=== PATIENT | male | born 1935 | race Caucasian/White ===

== ENCOUNTER → 2024-10-25 09:52 | Outpatient (REF) | payer MEDICARE, OTHER, SELFPAY | LOC: RST 09:52 | PROVIDERS: ATTENDING PHYSICIAN Family Medicine | DX: T17.908S Unspecified foreign body in respiratory tract, part unspecified causing other injury, sequela (principal); J69.0 Pneumonitis due to inhalation of food and vomit | CPT/HCPCS: 74230; 92611 ==

== ENCOUNTER → 2024-10-28 12:07 | Outpatient (REF) | payer MEDICARE, OTHER, SELFPAY ==
[2024-10-28 12:53] LABS: % Basophils 0.7 % (0-2); % Eosinophils 8.2 % (0-6); % Immature Granulocytes 0.3 % (0-0.5); % Lymphocytes 30.2 % (20.5-51.1); % Monocytes 7.4 % (1.7-9.3); % Neutrophils 53.2 % (42.2-75.2); Absolute Basophils 0.1 10^3/uL (0-0.2); Absolute Eosinophils 0.6 10^3/uL (0-0.7); Absolute Lymphocytes 2.1 10^3/uL (1.2-3.4); Absolute Monocytes 0.5 10^3/uL (0.1-0.6); Absolute Neutrophils 3.7 10^3/uL (1.4-6.5); Hematocrit 39.7 % (39.0-52.0); Hemoglobin 12.9 g/dL (13.0-18.0); Mean Corp Hgb Conc. 32.5 g/dL (33.0-37.0); Mean Corpuscular Hgb 29.1 pg (27.0-31.0); Mean Corpuscular Volume 89.6 fL (80.0-94.0); Mean Platelet Volume 10.8 fL (7.4-10.4); Nucleated Red Blood Cells % 0 % (-); Platelet Count 161 10^3/uL (130-400); Red Blood Cell Count 4.43 10^6/uL (4.70-6.10); Red Cell Dist. Width 15.6 % (11.5-14.5); White Blood Cell Count 6.9 10^3/uL (4.8-10.8)
[2024-10-28 13:01] LABS: PT 15.8 Sec (11.4-14.6)
[2024-10-28 14:38] LABS: Albumin 4.4 g/dl (3.5-5.0); Blood Urea Nitrogen 40 mg/dl (9-20); Calcium 10.3 mg/dl (8.4-10.2); Carbon Dioxide 27 mmol/L (22-30); Chloride 99 mmol/L (98-107); Glucose 82 mg/dl (70-99); Phosphorus 3.4 mg/dl (2.5-4.5); Potassium 5.2 mmol/L (3.5-5.1); Sodium 138 mmol/L (135-145); eGFR 48.34
== END ==
LOC: REG 12:07
PROVIDERS: ATTENDING PHYSICIAN Internal Medicine Cardiovascular Disease; FAMILY PHYSICIAN Family Medicine
DX: I10 Essential (primary) hypertension (principal); I25.10 Atherosclerotic heart disease of native coronary artery without angina pectoris; I65.29 Occlusion and stenosis of unspecified carotid artery; I25.119 Atherosclerotic heart disease of native coronary artery with unspecified angina pectoris
CPT/HCPCS: 36415; 80069; 85025; 85610; 85730

== ENCOUNTER → 2024-11-16 13:07 | Outpatient (REF) | payer MEDICARE, OTHER, SELFPAY | LOC: RCS 13:07 | PROVIDERS: ATTENDING PHYSICIAN Internal Medicine Cardiovascular Disease; FAMILY PHYSICIAN Family Medicine | DX: I10 Essential (primary) hypertension (principal); I25.10 Atherosclerotic heart disease of native coronary artery without angina pectoris; I48.91 Unspecified atrial fibrillation; I65.29 Occlusion and stenosis of unspecified carotid artery; I25.119 Atherosclerotic heart disease of native coronary artery with unspecified angina pectoris | CPT/HCPCS: 93306 ==

== ENCOUNTER → 2024-12-17 09:14 | Outpatient (REF) | payer MEDICARE, OTHER, SELFPAY ==
[2024-12-17 10:48] LABS: % Basophils 0.6 % (0-2); % Eosinophils 8.6 % (0-6); % Immature Granulocytes 0.1 % (0-0.5); % Lymphocytes 34.9 % (20.5-51.1); % Monocytes 6.9 % (1.7-9.3); % Neutrophils 48.9 % (42.2-75.2); Absolute Eosinophils 0.6 10^3/uL (0-0.7); Absolute Lymphocytes 2.4 10^3/uL (1.2-3.4); Absolute Monocytes 0.5 10^3/uL (0.1-0.6); Absolute Neutrophils 3.3 10^3/uL (1.4-6.5); Hematocrit 41.3 % (39.0-52.0); Hemoglobin 13.5 g/dL (13.0-18.0); Mean Corp Hgb Conc. 32.7 g/dL (33.0-37.0); Mean Corpuscular Hgb 28.8 pg (27.0-31.0); Mean Corpuscular Volume 88.2 fL (80.0-94.0); Mean Platelet Volume 10.5 fL (7.4-10.4); Nucleated Red Blood Cells % 0 % (-); Platelet Count 170 10^3/uL (130-400); Red Blood Cell Count 4.68 10^6/uL (4.70-6.10); Red Cell Dist. Width 15.4 % (11.5-14.5); White Blood Cell Count 6.8 10^3/uL (4.8-10.8)
[2024-12-17 11:58] LABS: ALT (SGPT) 15 U/L (0-50); Albumin 4.3 g/dl (3.5-5.0); Alkaline Phosphatase 129 U/L (38-126); Blood Urea Nitrogen 31 mg/dl (9-20); Calcium 10.2 mg/dl (8.4-10.2); Carbon Dioxide 27 mmol/L (22-30); Chloride 99 mmol/L (98-107); Glucose 101 mg/dl (70-99); HDL Cholesterol 38 mg/dl; LDL Cholesterol, Calculated 44 mg/dl; Potassium 4.5 mmol/L (3.5-5.1); Sodium 138 mmol/L (135-145); Total Bilirubin 1.2 mg/dl (0.2-1.3); Total Cholesterol 108 mg/dl (50-199); Total Protein 7.5 g/dl (6.3-8.2); Triglyceride 134 mg/dl (10-149); Very Low Density Lipoprotein 26 mg/dl (0-30); eGFR 58.17
[2024-12-17 12:09] LABS: AST (SGOT) 22 U/L (17-59)
[2024-12-17 12:11] LABS: Free T4 1.26 ng/dl (0.78-2.19)
[2024-12-17 12:15] LABS: Glycohemoglobin (HgbA1c) 5.6 % (4.0-5.6)
[2024-12-17 12:25] LABS: TSH 2.97 uIU/ml (0.47-4.68)
== END ==
LOC: REG 09:14
PROVIDERS: ATTENDING PHYSICIAN Family Medicine; REFERRING PHYSICIAN Internal Medicine Cardiovascular Disease
DX: R53.81 Other malaise (principal); E11.9 Type 2 diabetes mellitus without complications; I10 Essential (primary) hypertension; E78.2 Mixed hyperlipidemia; R39.15 Urgency of urination; I48.0 Paroxysmal atrial fibrillation
CPT/HCPCS: 36415; 80053; 80061; 83036; 84439; 84443; 85025

== ENCOUNTER → 2024-12-19 10:23 | Outpatient (REF) | payer MEDICARE, OTHER, SELFPAY ==
[2024-12-19 10:46] LABS: Urine Albumin 1+ (Neg - Trace); Urine Bilirubin Negative (Negative); Urine Character Clear (Clear); Urine Color Yellow; Urine Glucose Negative (Negative); Urine Ketone Negative (Negative); Urine Leukocyte Negative (Negative); Urine Nitrite Negative (Negative); Urine Occult Blood 1+ (Negative); Urine Urobilinogen Negative (Neg - 1+)
[2024-12-19 11:00] LABS: Urine Granular Cast 0-2 /LPF (0); Urine Hyaline Cast 0-2 /LPF (0-2); Urine Squamous Cell >30 /LPF (Few)
[2024-12-19 11:01] LABS: Urine Bacteria Few (Negative)
[2024-12-19 13:13] LABS: Microalbumin, Random Urine 4.7 mg/dl (0.6-1.7)
== END ==
LOC: REG 10:23
PROVIDERS: ATTENDING PHYSICIAN Family Medicine
DX: R53.81 Other malaise (principal); I10 Essential (primary) hypertension; E11.9 Type 2 diabetes mellitus without complications; E78.2 Mixed hyperlipidemia; R39.15 Urgency of urination; I48.0 Paroxysmal atrial fibrillation
CPT/HCPCS: 81003; 81015; 82043

== ENCOUNTER 2025-02-19 10:38 | Inpatient (IN) | payer MEDICARE, OTHER, SELFPAY ==
[2025-02-19] VITALS (28 sets, daily range): BP systolic 95–167; BP diastolic 57–127; BMI 23.6
--- NOTE | 2025-02-19 07:59 | ED.GENMED ---
History of Present Illness
General
Chief Complaint: Cold/Flu/URI Symptoms
Source: patient, records and previous hospital records
Exam Limitations: clinical condition
Time Seen by Provider: 02/19/25 07:38
Nursing documentation reviewed up to this point in time: agreed with
History of Present Illness
History of Present Illness:
89-year male from home with fever cough decreased p.o. intake, history of aspiration pneumonia here is febrile pulse ox is high 80s, states he has not been eating much because he aspirates, unclear if he has A-fib with anticoagulation,
Past History
Past History
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
of neck. He has a carotid blockage on that side and that's why he is on Plavix.)
ED Past Surgical History: Other (Mohs surgery)
Social History
Tobacco: Non-smoker
Alcohol: Occasional
Drug: None
Personal:
Living: with family
Employment: Retired
Family History
Family History: Other
Review of Systems
Review of Systems
All Other Systems: Not applicable
Constitutional: Reports fever and fatigue
Respiratory: Reports cough and trouble breathing
ABD/GI: Denies abdominal pain
Neurological: Reports weakness
Phy Exam
Physical Exam
Physical Exam:
Physical Exam
General: Ill-appearing male
Neck: Dry lips
Heart: Tachycardic
Lungs: Wheeze and rhonchi
Abdomen: Nontender
Neuro: Hard of hearing, grossly nonfocal
Skin: no rash
Psychiatric: Unable to fully assess appears
Extremities: no edema.
Sepsis
Sepsis Screening
Sepsis Assessment: Sepsis
Sepsis Screen
Sepsis Screen: Sepsis
Date: 02/19/25
Time: 12:13
Course
Orders/Labs/Results
Orders:
Orders
02/19/25 07:40
COVID-19 Antigen Urgent
Source: Nasal Swab
Urinalysis Reflex To Culture Urgent
Date Specimen was Collected: 02/19/25
Time Specimen was Collected: 07:36
Urine Microscopic Reflex Cult Urgent
Influenza A+B Rapid Molecular Urgent
JENNIFER Source: Nasal Swab
Specimen Description:
Date Specimen was Collected: 02/19/25
Time Specimen was Collected: 07:36
02/19/25 07:44
Complete Blood Count/With Diff Urgent
Comprehensive Metabolic Panel Urgent
Lactic Acid Urgent
Blood Culture Urgent
JENNIFER Source: Blood/Venous
Specimen Description:
02/19/25 07:49
CR Chest - 2 Views Urgent
Comment:
Reason For Exam: coguh fever
02/19/25 07:55
0.9% Sodium Chloride 1000 ml [Nss] 1,000 ml IV BOLUS
Acetaminophen 1000MG/100Ml [Ofirmev] 1,000 mg in 100 ml IV ONCE
Acetaminophen IV Indication:: ED Narcotic Naive Pt-ONCE
Ipratropium/Albuterol Sulfate [Duoneb] 3 ml INH R NOW STA
02/19/25 07:57
Electrocardiogram (*1) Urgent
Reason for Study: Shortness of Breath
EKG- Treatment ONCE
02/19/25 08:31
ABG [Arterial Blood Gas] Urgent
%Oxygen/Room Air: neb
02/19/25 08:56
Diltiazem HCl [Cardizem] 10 mg IV NOW STA
02/19/25 09:00
Diltiazem 125 mg/125 ml Nss [Cardizem] 125 mg in 125 ml IV PER PROTOCOL
Initial dose in mg/hr, then titrate:: 5
Titrate to keep:: Heart rate 80-100 bpm
Titrate by mg/hr:: 5 mg/hr
Frequency of titrations (minutes):: 15
Maximum dose in mg/hr:: 15
02/19/25 09:28
Ampicillin/Sulbactam 3 G [Unasyn] 3 gm 0.9% Sodium Chloride 100 ml [Nss] 100 ml IV NOW
02/19/25 09:31
Blood Culture Urgent
JENNIFER Source: Blood/Venous
Specimen Description:
02/19/25 09:59
Consult Interventional Radiology [IRAD CONSULT] Routine
Consulting Provider: Ramiro Huff
Was physician already notified: Yes
Reason for Consult/Procedure: Ptx
Acknowledgement that appropriate orders are entered: N/A
02/19/25 Lunch
NPO
Allow oral meds: Yes
Allow clear liquids: Sips of Clears
02/19/25 10:05
Lidocaine 2% [Xylocaine 2% Mdv] 20 ml .ROUTE .STK-MED ONE
02/19/25 10:18
Admit/Transfer Patient As Directed
Co-Sign Provider:
Level of Care: Inpatient admission
Assign to:: ICU
Physician / Group: Minoo
Diagnosis: Aspiration pneumonia, hydropneumothorax, rapid atrial fibrillation
Reason for Hospitalization: Antibiotics, chest tube, rate control
Expected length of stay greater than two midnights?: Yes
ELOS- Estimated Length of Stay in days: 4
I certify the patient meets the requirements for IP care: Yes
02/19/25 10:19
PRN Pain Medication Management As Directed
May give lesser potent ordered pain med per pt: Yes
preference::
Protocol:: Medication orders for pain may be administered in a
manner that supports deferring to patient preference
when the pt is:
- Requesting an ordered lesser potent pain medication.
Least to most potent pain medications are defined
as: acetaminophen < NSAID < tramadol < opioids
(morphine, oxycodone, hydromorphone).
- Requesting a lesser dose of the same medication IF
ORDERED.
- Requesting a less intrusive route of administration
if both routes are prescribed by the provider (PO <
IV).
02/19/25 10:20
Code Status As Directed
Resuscitation Status: Full Code
02/19/25 10:33
Fentanyl Citrate/Pf [Sublimaze] 100 mcg .ROUTE .STK-MED ONE
02/19/25 12:09
Dextrose 50%-Water [Dextrose 50% Syringe] 12.5 grams IV H20DSFN PRN
Glucagon [GlucaGen] 1 mg IM PRN PRN
Insulin Aspart Corrective Low [Novolog Flexpen-Low Resistance] See Protocol SC AC
Lactated Ringers [Lr] 1,000 ml IV 80 mls/hr
02/19/25 12:09
CARDIOLOGY CONSULT Routine
Consulting Provider: Johnson Rizo
Was physician already notified: Yes
Electrolysis Investigator Consult Routine
Consulting Provider: Douglas Null
Was physician already notified: Yes
Activity As Directed
Activity Level: Bedrest
Bedside Glucose Monitoring As Directed
Frequency: AC&HS
Additional Instructions:: Change to q6h if pt on TPN, tube feeding or not eating
Speech Therapy Eval & Treat Routine
02/19/25 14:00
Acetaminophen [Tylenol] 650 mg PO Q6HPRN PRN
02/19/25 16:00
Ampicillin/Sulbactam 3 G [Unasyn] 3 gm 0.9% Sodium Chloride 100 ml [Nss] 100 ml IV Q6H
02/19/25 20:00
Apixaban [Eliquis] 5 mg PO BID
02/20/25 06:00
Complete Blood Count/With Diff IN AM
Comprehensive Metabolic Panel IN AM
Glycohemoglobin (HgbA1c) IN AM
Abnormal Lab Results
02/19/25 02/19/25
07:40 07:44
WBC 12.2 H 10^3/uL
(4.8-10.8)
RBC 4.58 L 10^6/uL
(4.70-6.10)
RDW 15.4 H %
(11.5-14.5)
MPV 10.5 H fL
(7.4-10.4)
Absolute Neuts (auto) 9.7 H 10^3/uL
(1.4-6.5)
Absolute Monos (auto) 0.8 H 10^3/uL
(0.1-0.6)
Neutrophils % 80.0 H %
(42.2-75.2)
Lymphocytes % 12.3 L %
(20.5-51.1)
BUN 33 H mg/dl
(9-20)
Glucose 158 H mg/dl
(70-99)
Alkaline Phosphatase 134 H U/L
(38-126)
Ur Occult Blood Reflex 4+ A
(Negative)
Urine RBC 7-10 A /HPF
(0-2)
Urine Albumin (Reflex) 4+ A
(Neg - Trace)
02/19/25 07:44
02/19/25 07:44
Vital Signs
Initial and Last Documented VS:
Initial Vital Signs
Temp Pulse Resp BP Pulse Ox
100.6 F H 140 26 162/102 93
02/19/25 07:28 02/19/25 07:28 02/19/25 07:28 02/19/25 07:28 02/19/25 07:28
Last Documented Vital Signs
Temp Pulse Resp BP Pulse Ox
99.8 F 56 22 123/75 100
02/19/25 10:15 02/19/25 10:50 02/19/25 10:50 02/19/25 10:50 02/19/25 10:50
MDM/Problems Addressed
Differential Diagnosis Includes:
Pneumonia aspiration bronchitis
MDM/Problems Addressed:
Shortness of breath cough
Chronic conditions affecting care: Neurological disorder and Cancer
Acute Exacerbation and/or Progression of Chronic Illness: Neurological disorder and Cancer
*Radiology
Radiology exam reviewed: radiology read reviewed
*Pulse Oximetry
Patient hypoxic: yes
Comment: 89
*EKG
Interpreted by ED Provider?: Yes
Interpretation: abnormal
Comparison EKG: no comparison EKG present
Heart Rate: 140
Rate: normal
Ischemia: non-specific ST changes
*Gallery Assistant Interpretation
Rate: normal and tachycardiac
Interpretation: abnormal
Heart Rate: 140
Rhythm: sinus and a-fib
*Critical Care Note
Total Time (30-74mins, 75-104mins- exclusive of procedures): 31
Update Note
Update Note:
Update, summary text from radiology patient with a large pneumonia small pneumothorax conversation via text with hospitalist pulmonary and IR will start on rate control meds oxygen, plan for tube later today
ED Attending Note
-
Portions of this chart may have been created with voice recognition software.� Occasional wrong word or��sound alike� substitutions may have occurred due to the inherent limitations of voice recognition software.
Discharge Plan
Departure
Patient Disposition: Admit
Date of Disposition: 02/19/25
Time of Disposition: 09:10
Admit to: IMU
Presentation/result/management discussed w/ accepting MD/DO: Hospitalist
Patient with high blood pressure during this ER visit?: Yes
Condition: Serious
Discharge Problem:
Aspiration pneumonia, Pneumothorax
Interventions
Interventions:
*Risk Screen - Suicide Last Done: 02/19/25 07:28
*General Assessment Last Done: 02/19/25 07:28
*Neglect/Abuse Screening Last Done: 02/19/25 07:28
[2025-02-19 08:00] LABS: % Basophils 0.4 % (0-2); % Eosinophils 0.8 % (0-6); % Immature Granulocytes 0.2 % (0-0.5); % Lymphocytes 12.3 % (20.5-51.1); % Monocytes 6.3 % (1.7-9.3); Absolute Basophils 0.1 10^3/uL (0-0.2); Absolute Eosinophils 0.1 10^3/uL (0-0.7); Absolute Lymphocytes 1.5 10^3/uL (1.2-3.4); Absolute Monocytes 0.8 10^3/uL (0.1-0.6); Absolute Neutrophils 9.7 10^3/uL (1.4-6.5); Hematocrit 39.8 % (39.0-52.0); Hemoglobin 13.2 g/dL (13.0-18.0); Mean Corp Hgb Conc. 33.2 g/dL (33.0-37.0); Mean Corpuscular Hgb 28.8 pg (27.0-31.0); Mean Corpuscular Volume 86.9 fL (80.0-94.0); Mean Platelet Volume 10.5 fL (7.4-10.4); Nucleated Red Blood Cells % 0 % (-); Platelet Count 201 10^3/uL (130-400); Red Blood Cell Count 4.58 10^6/uL (4.70-6.10); Red Cell Dist. Width 15.4 % (11.5-14.5); White Blood Cell Count 12.2 10^3/uL (4.8-10.8)
[2025-02-19 08:07] LABS: COVID-19 Antigen Negative (Negative)
[2025-02-19 08:13] LABS: Urine Albumin 4+ (Neg - Trace); Urine Bilirubin Negative (Negative); Urine Character Clear (Clear); Urine Color Yellow; Urine Glucose Negative (Negative); Urine Ketone Negative (Negative); Urine Leukocyte Negative (Negative); Urine Nitrite Negative (Negative); Urine Occult Blood 4+ (Negative); Urine Specific Gravity 1.015 (<1.030); Urine Urobilinogen Negative (Neg - 1+)
[2025-02-19 08:18] LABS: ALT (SGPT) 14 U/L (0-50); AST (SGOT) 21 U/L (17-59); Albumin 4.3 g/dl (3.5-5.0); Alkaline Phosphatase 134 U/L (38-126); Blood Urea Nitrogen 33 mg/dl (9-20); Calcium 10.2 mg/dl (8.4-10.2); Carbon Dioxide 23 mmol/L (22-30); Chloride 103 mmol/L (98-107); Estimated Creatinine Clearance 44 ml/min; Glucose 158 mg/dl (70-99); Potassium 4.9 mmol/L (3.5-5.1); Sodium 140 mmol/L (135-145); Total Bilirubin 1.2 mg/dl (0.2-1.3); Total Protein 7.5 g/dl (6.3-8.2); eGFR 58.17
[2025-02-19] MEDS: OFIRMEV 100 IV (08:22)
[2025-02-19] MEDS: DUONEB 3 ML INH ×2 (08:23→19:51)
[2025-02-19] MEDS: NSS 1000 IV (08:27)
[2025-02-19 08:54] LABS: Urine Squamous Cell None seen /LPF (Few); Urine White Cell None Seen /HPF (0-5)
[2025-02-19] MEDS: CARDIZEM 125 IV (09:32)
[2025-02-19] MEDS: CARDIZEM 10 MG IV (09:32)
[2025-02-19] MEDS: UNASYN IV ×3 (09:48→21:40)
--- NOTE | 2025-02-19 10:26 | HPS.HSE ---
Family Physician
-
Family Physician: NOT KNOW UNKNOWN - PT DOES
Chief Complaint
-
Cough, shortness of breath, chills
History of Present Illness
89-year-old male with history of aspiration pneumonia, was in his usual state of health yesterday but in the middle of the night his noted significant cough and chills and became concerned.
Patient himself is a limited historian. His states that he is chronically ill, has limited mobility. Uses a walker to transfer. Primarily sits in the chair and has had significant weight loss and anorexia. Limited oral intake related to
dysphagia and history of aspiration.
History of head and neck cancer resected 30 years ago and treated with radiation. Never had a feeding tube according to .
Medical History
Past Medical History
Past Medical History: Reports Other
Additional Past Medical History:
Aspiration pneumonia
Tongue cancer
Atrial fibrillation -recent diagnosis.
Essential hypertension
Left carotid occlusion and stenosis
CAD
Hypothyroidism
DM2
Aortic stenosis
Spinal stenosis
Chronic anemia
PAD
Past Surgical History: Reports Other
Additional Past Surgical History:
Tongue resection
Adrenalectomy
Social History
Tobacco: Non-smoker
Alcohol: Occasional
Drug: None
Personal:
Living: With Family
Family History
Family History: Not pertinent
Allergies / Home Medications
Allergies reflects when Allergies were last updated in [facility].
Home Medications with original date entered in [facility]
Allergy/Medication List:
Allergies
Allergy/AdvReac Type Severity Reaction Status Date / Time
penicillin G Allergy DRY MOUTH Verified 02/19/25 07:36
Home Medications
aspirin 81 mg chewable tablet 81 mg PO DAILY Blood clot prevention/tx 08/07/22
atorvastatin 80 mg tablet (Lipitor) 80 mg PO HS High cholesterol 08/07/22
cholecalciferol (vitamin D3) 25 mcg (1,000 unit) capsule (Vitamin D3) 25 mcg PO DAILY@1200 Supplement 08/07/22
glimepiride 1 mg tablet 1 mg PO DAILY Diabetes 08/07/22
levothyroxine 50 mcg tablet 50 mcg PO DAILY Thyroid 08/07/22
metoprolol succinate 25 mg tablet,extended release 24 hr 25 mg PO DAILY Blood pressure 08/07/22
pregabalin 75 mg capsule (Lyrica) 75 mg PO BID Pain 08/07/22
vitamin E 400 unit tablet 400 unit PO DAILY@1200 Supplement 08/07/22
chlorhexidine gluconate 0.12 % mouthwash 10 ml mucous membrane BID Infection 08/13/22
fluoride (sodium) 1.1 % dental cream (Denta 5000 Plus) 1 applic dental BID Prevent cavitites 08/13/22
furosemide 20 mg tablet 20 mg PO MOWEFR Fluid retention/Swelling 08/13/22
pentoxifylline 400 mg tablet,extended release 400 mg PO BID Blood Clot Prevention/Tx 08/13/22
temazepam 15 mg capsule 15 mg PO HS insomnia 08/13/22
vitamin A-vitamin C-vit E-min tablet (Vision tablet) 1 tab PO BID@1200,2200 Supplement 08/13/22
doxycycline monohydrate 40 mg capsule,immediate - delay release (Oracea) 40 mg PO DAILY Infection 04/06/23
losartan 100 mg tablet 100 mg PO DAILY Blood Pressure 04/06/23
omega 6-hwn-nst-fish oil 1,000 mg (120 mg-180 mg) capsule (Fish Oil) 1 cap PO DAILY Supplement 04/06/23
amoxicillin 875 mg-potassium clavulanate 125 mg tablet 1 tab PO Q12H 7 days #14 tabs 04/09/23
Review of Systems
-
History Source: Patient and Family
A 12 point ROS was completed and negative except as noted: Yes
Constitutional: Reports Chills
Respiratory: Reports Cough
Physical Exam
Vital Signs
Vital Signs
Temp Pulse Resp BP Pulse Ox
99.8 F 95 22 111/61 100
02/19/25 10:15 02/19/25 10:15 02/19/25 10:15 02/19/25 10:15 02/19/25 10:15
Physical Exam
General: No Apparent Distress, Comfortable and Appears Chronically Ill
HEENT: NormoCephalic and Anicteric
Respiratory: Rhonchi
Cardiac: S1/S2, Regular Rhythm and Tachycardia
GI: Soft, Non Tender and Non Distended
Genito-urinary: Deferred by me
Musculoskeletal: No Clubbing, No Cyanosis and No Edema
Skin: Warm and Dry
Neuro: Awake and Alert
Hematologic/Lymphatic: No Lymphadenopathy
Psych: Calm
Laboratory Results
-
02/19/25 07:44
02/19/25 07:44
Laboratory Results
Lactic Acid 2.0 mmol/L (0.7-2.0) 02/19/25 07:44
Total Bilirubin 1.2 mg/dl (0.2-1.3) 02/19/25 07:44
AST 21 U/L (17-59) 02/19/25 07:44
ALT 14 U/L (0-50) 02/19/25 07:44
Alkaline Phosphatase 134 U/L (38-126) H 02/19/25 07:44
Impression/Plan
-
Sepsis -due to aspiration pneumonia. Admit to ICU. Continue IV fluids and antibiotics. Blood culture sent. Consult product manager medical device.
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 Chest x-ray with bilateral infiltrates. Has been on a soft diet at home. Last episode of aspiration pneumonia was 2 years ago according to his . Keep
n.p.o., await speech therapy consult. states that patient would not be interested in a feeding tube. Will need to address goals of care.
Right hydropneumothorax -with small right apical pneumothorax on chest x-ray. Moderate right pleural effusion. Awaiting chest tube today by IR.
Rapid atrial fibrillation -started on IV Cardizem in the emergency room with improvement in heart rate. Suspect trigger of rapid atrial fibrillation is sepsis and pneumonia. Should improve with treatment of underlying condition.
Known to Dr. Pierre. Has been on Eliquis. Consult cardiology.
Essential hypertension with hypertensive urgency -blood pressure elevated on arrival due to hypoxia and sepsis. Blood pressure now improving on IV Cardizem.
CAD -stable.
Hypothyroidism -on levothyroxine.
DM2 with hyperglycemia -hold oral agents. Use low resistance NovoLog scale.
Full code - prefers DNR but she states that her would want to be a full code. Will need to address goals of care.
--- NOTE | 2025-02-19 11:36 | CON.CAR ---
Consultation
Consultation Request
Date/Time Consultation Requested: 02/19/2025 at 10:18 AM
Date/Time Consultation Performed: 02/19/25 at 11:30 AM
Requesting Provider: Kareem Hennessy MD
Performing Provider: Johnson Rizo MD
Reason for Consultation: AF w RVR
Medical History
-
Chief Complaint: AF w RVR
History of Present Illness:
Venu Briscoe is an 89-year-old man with coronary artery disease (abnormal stress test), hypertension, atrial fibrillation on Eliquis who presents with aspiration pneumonia. He is a patient of Dr. Pierre whom he last saw in October 2024. At
that time he was diagnosed with new asymptomatic rate controlled atrial fibrillation and started on Eliquis 5 mg twice daily. He presents today after coughing episode with high fevers last night, found to have aspiration pneumonia and right
hydropneumothorax status post chest tube placement. Cardiology was consulted because his initial heart rates were in the 130s�140s. He was briefly on IV Cardizem which has since been stopped. After chest tube placement and Cardizem, his heart
rate is now in the 70s�80s. He has no CV complaints.
Past Medical History
Past Medical History: Other (as above)
Family History
Family History: Reviewed & Not Pertinent
Allergies / Home Medications
Allergy/AdvReac Type Severity Reaction Status Date / Time
penicillin G Allergy DRY MOUTH Verified 02/19/25 07:36
�Medication �Instructions �Recorded �Confirmed �Type
aspirin 81 mg chewable tablet 81 mg PO DAILY Blood clot 08/07/22 04/06/23 History
prevention/tx
atorvastatin 80 mg tablet (Lipitor) 80 mg PO HS High cholesterol 08/07/22 04/06/23 History
cholecalciferol (vitamin D3) 25 25 mcg PO DAILY@1200 Supplement 08/07/22 04/06/23 History
mcg (1,000 unit) capsule (Vitamin
D3)
glimepiride 1 mg tablet 1 mg PO DAILY Diabetes 08/07/22 04/06/23 History
levothyroxine 50 mcg tablet 50 mcg PO DAILY Thyroid 08/07/22 04/06/23 History
metoprolol succinate 25 mg 25 mg PO DAILY Blood pressure 08/07/22 04/06/23 History
tablet,extended release 24 hr
pregabalin 75 mg capsule (Lyrica) 75 mg PO BID Pain 08/07/22 04/06/23 History
vitamin E 400 unit tablet 400 unit PO DAILY@1200 Supplement 08/07/22 04/06/23 History
chlorhexidine gluconate 0.12 % 10 ml mucous membrane BID Infection 08/13/22 04/06/23 History
mouthwash
fluoride (sodium) 1.1 % dental 1 applic dental BID Prevent 08/13/22 04/06/23 History
cream (Denta 5000 Plus) cavitites
furosemide 20 mg tablet 20 mg PO MOWEFR Fluid 08/13/22 04/06/23 History
retention/Swelling
pentoxifylline 400 mg 400 mg PO BID Blood Clot 08/13/22 04/06/23 History
tablet,extended release Prevention/Tx
temazepam 15 mg capsule 15 mg PO HS insomnia 08/13/22 04/06/23 History
vitamin A-vitamin C-vit E-min 1 tab PO BID@1200,2200 Supplement 08/13/22 04/06/23 History
tablet (Vision tablet)
doxycycline monohydrate 40 mg 40 mg PO DAILY Infection 04/06/23 04/06/23 History
capsule,immediate - delay release
(Oracea)
losartan 100 mg tablet 100 mg PO DAILY Blood Pressure 04/06/23 04/06/23 History
omega 5-tud-gos-fish oil 1,000 mg 1 cap PO DAILY Supplement 04/06/23 04/06/23 History
(120 mg-180 mg) capsule (Fish Oil)
amoxicillin 875 mg-potassium 1 tab PO Q12H 7 days #14 tabs 04/09/23 Rx
clavulanate 125 mg tablet
Review of Systems
-
All other systems: Negative unless noted
Physical Exam
Vital Signs
Temp Pulse Resp BP Pulse Ox
99.8 F 56 22 123/75 100
02/19/25 10:15 02/19/25 10:50 02/19/25 10:50 02/19/25 10:50 02/19/25 10:50
Lab Results
02/19/25 07:44
02/19/25 07:44
Physical Exam
General: No Apparent Distress
Respiratory: Clear
Cardiac: Irregular Rhythm; Negative Peripheral Edema
Impression / Plan
-
Venu Briscoe is an 89-year-old man with coronary artery disease (abnormal stress test), HFpEF, hypertension, atrial fibrillation on Eliquis who presents with aspiration pneumonia. Cardiology is consulted for atrial fibrillation with RVR which
has since resolved.
Rn Peritoneal Dialysis: Dr. Pierre
Persistent atrial fibrillation
-HRs initially 130s�140s but after chest tube placement and IV Cardizem, he is now in the 70s�80s, still in fib. Suspect initially elevated rates were due to dyspnea and pneumonia.
-Continue home metoprolol 25 mg daily. Uptitrate if needed.
-Continue Eliquis 5 mg twice daily. [id number] 4. If he is not able to take pills, he does NOT need bridging with heparin.
-Recent TTE in November. Do not need to repeat.
Aspiration pneumonia
-Antibiotics per primary team
-Status post chest tube for right sided hydropneumothorax
Coronary artery disease
-Based on abnormal stress test. Currently asymptomatic.
-Continue statin. No aspirin due to systemic anticoagulation.
Hypertension
-Hypertensive urgency on admission but suspect due to pain and dyspnea. Improved after chest tube
-BP is now well-controlled. Monitor on home metoprolol.
Cardiology will sign off at this time. Please call with any additional questions or concerns.
Data Reviewed
-
EKG: Tracing Personally Visualized and interpreted and Discussed with Patient
Radiology: Image Personally Visualized and interpreted
Medical Tests (Nuc Med, Echo etc): Report Reviewed by me
Labs: Labs Reviewed by me
Old Records: Reviewed
[2025-02-19] MEDS: LR 1000 IV (12:29)
--- NOTE | 2025-02-19 12:40 | CON.INTV ---
Consultation
Consultation Request
Date/Time Consultation Requested: 02/19/2025 - 120
Date/Time Consultation Performed: 02/19/2025 - 3
Requesting Provider: Dr. Hennessy
Performing Provider: Dr. Null
Reason for Consultation: R-sided PTX/pleural effusion
Medical History
-
Chief Complaint: Fever, chills and cough
History of Present Illness:
89-year-old male non-smoker with a past medical history of DM type II, hypertension, hyperlipidemia, tongue cancer s/p XRT, A-fib on Eliquis, aortic stenosis, RBBB and left carotid artery stenosis who presents with fevers, chills cough. He says his
cough started about a day ago without chest pain and he denies any coughing after eating or drinking. EMS said that his stated 'I can't deal with him, just take him.' states that he had a fever on the morning of arrival to 101.5 �F and
no meds were given to him. He reportedly has a history of aspiration pneumonia. Per the , he is chronically ill with limited mobility, using a walker to transfer. He has had significant weight loss recently and reduced oral intake due to
history of dysphagia/aspiration. He has a history of head neck cancer resected about 30 years ago, treated with radiation. Never had a feeding tube. Initially in the ER he was febrile to 100.6 �F, pulse rate 140 (A-fib with RVR), tachypneic to 26
breaths/min, BP 162/102 and saturating 93% on room air. Initial labs showed leukocytosis to 12.2, Hb 13.2, INR 2.49, urinalysis negative for UTI, and COVID-19 antigen negative. Flu A/B swab was negative and blood cultures collected. CXR showed a
right-sided hydropneumothorax with moderate right-sided pleural effusion and bilateral pulmonary opacities concerning for pneumonia. Given his rapid A-fib is initially given Cardizem 10 mg and then started on Cardizem drip, given DuoNebs, Tylenol,
Unasyn and 1 L NS 0.9%. IR was consulted and they inserted a 14 [place] Thal-Quick chest tube into the right hemithorax with removal of clear serous fluid. Given the patient's rapid A-fib with blood pressure dropping from the 160s to the 100s, he
was admitted to the ICU for closer monitoring and [facility] services consulted for additional management/recommendations.
When I saw the patient, he was resting in bed, right-sided chest tube in place with 2.1 L in the Pleur-evac, with serous appearing pleural fluid. Heart rate 87, BP 123/75 and saturating 100% on 6 L/min nasal cannula. He says he feels much better.
He still has a wet sounding cough. Of note, he is hard of hearing. He currently denies chest pain, ELIZONDO, nausea or chills.
PMHx: DM type II, hypertension, hyperlipidemia, rosacea, history of tongue cancer s/p XRT, macular degeneration, A-fib on Eliquis, left carotid artery stenosis, aortic stenosis, history of RBBB, [place]
PSHx: Tongue surgery, tumor removal from neck
Past Medical History
Past Medical History: Other (Above as per HPI)
Past Surgical History: Other (Above as per HPI)
Social History
Tobacco: Non-smoker
Alcohol: Daily
Drug: None
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
Family History
Family History: CAD (Father) and Hypertension (Mother + father)
Allergies / Home Medications
Allergies
Allergy/AdvReac Type Severity Reaction Status Date / Time
penicillin G Allergy DRY MOUTH Verified 02/19/25 07:36
Home Medications
�Medication �Instructions �Recorded �Confirmed �Last Taken �Type
atorvastatin 80 mg tablet (Lipitor) 80 mg PO HS High cholesterol 08/07/22 02/19/25 02/18/25 History
levothyroxine 50 mcg tablet 50 mcg PO DAILY Thyroid 08/07/22 02/19/25 02/18/25 History
pregabalin 75 mg capsule (Lyrica) 75 mg PO BID Pain 08/07/22 02/19/25 02/18/25 History
omega 9-ajm-zqj-fish oil 1,000 mg 1 cap PO DAILY Supplement 04/06/23 02/19/25 02/18/25 History
(120 mg-180 mg) capsule (Fish Oil)
apixaban 5 mg tablet (Eliquis) 5 mg PO BID 02/19/25 02/19/25 02/18/25 History
docusate sodium 100 mg capsule 200 mg PO BID 02/19/25 02/19/25 02/18/25 History
fluoride (sodium) 1.1 % dental 1 applic dental DAILY 02/19/25 02/19/25 02/18/25 History
cream (Denta 5000 Plus)
furosemide 20 mg tablet 20 mg PO .MOWEFR 02/19/25 02/19/25 02/17/25 History
glimepiride 1 mg tablet 1 mg PO DAILY 02/19/25 02/19/25 02/18/25 History
hydrocodone 7.5 mg-acetaminophen 1 tab PO Q6HPRN PRN moderate pain 02/19/25 02/19/25 02/17/25 History
325 mg tablet
metoprolol succinate 25 mg 25 mg PO DAILY 02/19/25 02/19/25 02/18/25 History
tablet,extended release 24 hr
omeprazole 40 mg capsule,delayed 40 mg PO DAILY 02/19/25 02/19/25 02/18/25 History
release
pentoxifylline 400 mg 400 mg PO BID 02/19/25 02/19/25 02/18/25 History
tablet,extended release
temazepam 15 mg capsule 15 mg PO HS PRN insomnia 02/19/25 02/19/25 02/18/25 History
vitamins A,C,X-dxtl-lblhre 2,148 2 tab PO BID 02/19/25 02/19/25 02/18/25 History
mcg-113 mg-45 mg-17.4 mg tablet
(PreserVision AREDS)
Review of Systems
-
History Source: Patient
All other systems: Negative unless noted
Vitals / Labs / Diagnostic Testing
Vital Signs
Temp Pulse Resp BP Pulse Ox
98.8 F 81 9 106/61 100
02/19/25 15:00 02/19/25 12:00 02/19/25 11:45 02/19/25 12:00 02/19/25 12:00
Lab Data
02/19/25 07:44
02/19/25 07:44
Laboratory Results
02/19/25 02/19/25 02/19/25
08:31 12:35 15:30
PT Cancelled 26.9 H
INR Cancelled 2.49
APTT Cancelled 42.8 H
pH Cancelled
pCO2 Cancelled
pO2 Cancelled
HCO3 Cancelled
O2 Delivery Level Cancelled
Microbiology
02/19/25 11:27 Pleural Fluid Gram Stain - Preliminary
02/19/25 07:40 Nasal Swab Influenza Types A & B (AUBREY) - Final
Negative for Influenza A & B, NAAT
Negative results must be combined with clinical observations
and patient history.
Nucleic Acid Amplification test (NAAT)performed on the
[employer] platform.
Diagnostic Testing:
Physical Exam
-
HEENT: Normocephalic and Anicteric
Cardiovascular: Irregular Rhythm (Irregularly irregular), Peripheral Edema (negative) and Other (Normal rate)
Respiratory: Rales (Bilaterally), Rhonchi (Bilaterally) and Other (Right-sided chest tube in place at -20 cmH2O suction with no airleak and 2.1 L of serous fluid in Pleur-evac)
GI: Soft, Non Distended, Non Tender and Normal Bowel Sounds
Neurology: Awake, Tremors (negative) and Other (Drowsy but answering questions appropriately)
Skin: Warm and Dry
General: Respiratory Distress (negative), Comfortable, Chills (negative) and Sweats (negative)
Assessment
-
Assessment: 89-year-old male non-smoker with a past medical history of DM type II, hypertension, hyperlipidemia, tongue cancer s/p XRT, A-fib on Eliquis, aortic stenosis, RBBB and left carotid artery stenosis who presents with fevers, chills cough.
He says his cough started about a day ago without chest pain and he denies any coughing after eating or drinking. EMS said that his stated 'I can't deal with him, just take him.' states that he had a fever on the morning of arrival to
101.5 �F and no meds were given to him. He reportedly has a history of aspiration pneumonia. Per the , he is chronically ill with limited mobility, using a walker to transfer. He has had significant weight loss recently and reduced oral
intake due to history of dysphagia/aspiration. He has a history of head neck cancer resected about 30 years ago, treated with radiation. Never had a feeding tube. Initially in the ER he was febrile to 100.6 �F, pulse rate 140 (A-fib with RVR),
tachypneic to 26 breaths/min, BP 162/102 and saturating 93% on room air. Initial labs showed leukocytosis to 12.2, Hb 13.2, INR 2.49, urinalysis negative for UTI, and COVID-19 antigen negative. Flu A/B swab was negative and blood cultures
collected. CXR showed a right-sided hydropneumothorax with moderate right-sided pleural effusion and bilateral pulmonary opacities concerning for pneumonia. Given his rapid A-fib is initially given Cardizem 10 mg and then started on Cardizem drip,
given DuoNebs, Tylenol, Unasyn and 1 L NS 0.9%. IR was consulted and they inserted a 14 [place] Thal-Quick chest tube into the right hemithorax with removal of clear serous fluid. Given the patient's rapid A-fib with blood pressure dropping from
the 160s to the 100s, he was admitted to the ICU for closer monitoring and [facility] services consulted for additional management/recommendations
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
aspiration, [place]
Impression:
#Right-sided hydropneumothorax s/p chest tube
#Bilateral pneumonia suspected to be due to aspiration
#Sepsis in the setting of pneumonia
#Acute respiratory failure with hypoxia due to pneumonia, pleural effusion + PTX
#A-fib with RVR
#Leukocytosis
#Elevated INR � likely due to reduced PO intake in the setting of sepsis and outpatient Eliquis use
#History of tongue cancer s/p resection + XRT
#History of dysphagia + aspiration
#History of A-fib on Eliquis (follows with Dr. Pierre as an outpatient)
#Left-sided carotid artery stenosis
#Low gradient moderate aortic stenosis seen on TTE from 11/16/2024
#History of alcohol use
Plan:
- Patient found to have bilateral pneumonia with a R-sided pneumothorax and large R-sided pleural effusion - once chest tube was inserted there was a large amount of pleural fluid removed, about 2.1 L of serous fluid
- Suspect that this also represents large component of heart failure
- Given that he is septic, would cautiously give IVF but monitor for development of pulmonary edema; check CXR again tomorrow; of note, he does take Lasix at home with 20 mg TIW
- Trend WBC and monitor fever curve
- Follow-up pleural fluid cultures
- Consider repeating echo as last done on 11/16/2024 showing low-gradient moderate aortic stenosis with peak/mean gradients of 12/7 mmHg with ERMA 1.1 cm�
- Continue antibiotics (Unasyn) with infectious workup including blood cultures; check sputum culture and check Legionella/strep pneumoniae urine antigens
- Patient has a history of A-fib and is on Eliquis at home with metoprolol
- Would continue with Eliquis as long as he can safely swallow otherwise may need Dobbhoff tube while SUPERVISOR PATCHING evaluation is pending
- Maintain goal HR <110
- Replete electrolytes with K>4, Mg>2
- Maintain SpO2 >90-94% with supplemental oxygen and wean down O2 flow rate as tolerated
- Aspiration precautions
- He has a wet sounding cough but not bringing up his phlegm
- Mucolytics with Mucinex
- Start DuoNebs with nebulized 3%-NS BID
- May benefit from vest; will use Acapella for now
- prn nebulized bronchodilators - not currently bronchospastic
- Maintain MAP>65
- Maintain euglycemia with goal BG 140-180; ISS for now; HbA1C: 5.6 on 12/17/2024
- Trend H/H and transfuse if needed to keep Hb>7g/dL; keep plt>20k, unless there is concern for bleeding then keep plt>50k
- Incentive spirometer encouraged 10x per hour for at least 4 hrs a day
- PT/OT
- DVT ppx: Eliquis; if unable to swallow then can do heparin gtt or therapeutic LMWH
Total time spent today was 79 minutes for this encounter. Time includes reviewing laboratory test/imaging results, reviewing pertinent medical records, obtaining and reviewing medical history, performing an appropriate exam, ordering medications,
tests and procedures. Time also includes documentation of this encounter, coordinating patient care and communicating with other healthcare professionals. Total time does not include separately billed tests performed on this date of service.
Data:
CXR 02/19/2025: Right hydropneumothorax; Bilateral pulmonary opacities suspicious for pneumonia. Pulmonary edema would be an alternative consideration.
[2025-02-19 12:51] LABS: Glucose - Point of Care 113 mg/dl (70-99)
--- NOTE | 2025-02-19 14:30 | PTCARENOTE ---
> At 12: 15 patient admitted from ED due to Aspiration pneumonia, hydropneumothorax; Dentures; Hearing aid
> AAO x3 Denies pain; Able to move b/l LE and UE with no difficulties. Speech chronic garble
> Afib 86 +2 pitting edema to b/l le
> chest tube Rt site inserted in ED on admission. Arrived on a floor with chest tube clamped. chest tube 1200 yellow drainage output
> Abdomen soft non tender round
> Continent of urine
--- NOTE | 2025-02-19 15:38 | PTOTSP ---
Speech Pathology Evaluation
89M with admission for aspiration PNA and rt hydropneumothorax s/p chest tube p/w s/s concerning of an acute on chronic oropharyngeal dysphagia. Overt s/s of aspiration with x1 ice chip this date. Patient declined further trials d/t discomfort.
Extensive dysphagia hx per chart with recent VSE on 10/25/24.
VSE 10/25/24:
'Moderate oral and severe pharyngeal dysphagia, worsened compared to last known video swallow study 10/09/2022. Dysphagia suspected to be chronic due to changes from tongue cancer s/p neck dissection and radiation combined with advanced age.
Aspiration risk is elevated. Patient denied any recent complications from aspiration such as PNA but endorsed weight loss (unspecified amount or time range) from dysphagia.
Patient indicated that he would not want non-oral means and wished to continue to eat/drink understanding risks/complications of aspiration after education about video swallow study this date. Further goals of care discussion with physician
warranted regarding risks/benefits of oral intake for comfort/pleasure vs consideration of non-oral means, given chronic dysphagia and elevated aspiration risk. If opting for PO for comfort consider diet below with thin liquids as thick liquids are
at an increased risk to cause pulmonary issues if aspirated.
If opting for PO diet for comfort/pleasure understanding aspiration risks:
1. IDDSI Level 5 Minced and Moist Solids, Thin Liquids via small single sips
2. Strategies: upright to 90 degrees, small sips/bites, multiple swallows (to
try and clear pharyngeal residue), cough/reswallow strategy (to try and clear
airway)
3. Oral care 3x daily
4. Outpatient dysphagia evaluation for patient education, instruction in compensations, and to target expiratory muscle strength training as an airway protection mechanism
5. Dietitian consult given reported weight loss'
Recommendations:
1. Strict NPO
2. Meds via non-oral means
3. Oral care 3-5x day
4. Not appropriate for ARHP
4. STEWARD/STEWARDESS WINE service to follow up re: to assess for safest and least restrictive diet level and determine need for repeat VSE
[2025-02-19 15:54] LABS: INR 2.49; PT 26.9 Sec (11.4-14.6)
[2025-02-19 15:55] LABS: APTT 42.8 Sec (23.4-35.0)
--- NOTE | 2025-02-19 16:25 | PTCARENOTE ---
per ST evaluation pt should remain strict NPO including meds. Patient refusing Dophoff . patient AAO x3
[2025-02-19 16:40] LABS: Glucose - Point of Care 109 mg/dl (70-99)
[2025-02-19] MEDS: LOVENOX 80 MG SC (17:06)
[2025-02-19] MEDS: NOVOLOG FLEXPEN-LOW RESISTANCE SC (19:11)
--- NOTE | 2025-02-19 19:15 | PTCARENOTE ---
Addendum entered by Paula tMz RN 02/20/25 01:12:
Room temperature warmed and warm blankets donned.
Original Note:
Patient received lying in bed. He appears to be sleeping comfortably with eyes closed, lying still, respirations nonlabored. Voice quality moist and garbled speech from previous tongue resection. Oriented to self, time, place and event. However, he
is noted forgetful. Patient states that he feels cold, afebrile. All extremities cool and mottled. Positive pulses x 4 extremities, bilateral pedal edema 1+. BLE dry with scaly areas on skin. S1S2 irregular with positive murmur. Afib with BBB on CM,
occasional PVCs. Sats 94% on RA. RUL with pleural rub and crackles, RML and RLL diminished. SMITH clear, left base diminished with fine crackles. CT right side with dressing CDI. No crepitus. No air leak noted, CT to -20cm suction with mostly serous
but some serosanguinous drainage noted. Patient c/o right chest discomfort at CT site 03/11. Prn Tylenol per rectum given. Bed in low and locked position, call brower within reach.
[2025-02-19] MEDS: TYLENOL/FEVERALL 650 MG RECTAL (19:23)
[2025-02-19] MEDS: SODIUM CHLORIDE 3% FOR INHALATION 1 VIAL INH (19:51)
--- NOTE | 2025-02-19 22:00 | PTCARENOTE ---
Patient voids per urinal, spilling some urine. Complete cares given with CHG cloth bath, complete linen change. Patient repositioned every 2 hours and prn. Oral care rendered, partial removed and soaked. Patient noted with sats dropping to 87%-92%
on RA with sleep. Loose NPC, encouraged DB & C. Ilya GONGORA notified and orders received to place patient on oxygen. O2 at 2L/nc placed. Sats improved to 97%.
[2025-02-20] VITALS (25 sets, daily range): BP systolic 95–175; BP diastolic 60–98; BMI 25.1
--- NOTE | 2025-02-20 | PTCARENOTE ---
Patient appears to be sleeping comfortably when undisturbed with eyes closed, lying still, respirations slightly tachypneic but non labored on 2L/nc oxygen. VSS. Changed out pleurex cannister due to chamber fullness. CT site remains WDL. Rouses
easily to name called. Physical assessment essentially unchanged except skin color less mottled and patient extremities are warmer.
[2025-02-20] MEDS: LR 1000 IV (00:09)
[2025-02-20] MEDS: NOVOLOG FLEXPEN-LOW RESISTANCE SC ×4 (00:09→17:41)
[2025-02-20 00:10] LABS: Glucose - Point of Care 94 mg/dl (70-99)
[2025-02-20] MEDS: UNASYN IV ×4 (04:18→22:47)
[2025-02-20] MEDS: LOVENOX 80 MG SC ×2 (05:30→17:40)
--- NOTE | 2025-02-20 05:30 | PTCARENOTE ---
Am labs drawn. CXR performed. Patient states he has no SOB, no CP. No change in BBS except RUL without rub audible, diminished t/o right lung. SMITH clear with fine crackles and diminished left base. No other change noted in physical assessment.
Afebrile, VSS.
[2025-02-20 05:57] LABS: % Basophils 0.2 % (0-2); % Immature Granulocytes 0.2 % (0-0.5); % Lymphocytes 20.1 % (20.5-51.1); % Monocytes 7.8 % (1.7-9.3); % Neutrophils 70.7 % (42.2-75.2); Absolute Eosinophils 0.1 10^3/uL (0-0.7); Absolute Lymphocytes 1.6 10^3/uL (1.2-3.4); Absolute Monocytes 0.6 10^3/uL (0.1-0.6); Absolute Neutrophils 5.7 10^3/uL (1.4-6.5); Hematocrit 34.7 % (39.0-52.0); Hemoglobin 11.5 g/dL (13.0-18.0); Mean Corp Hgb Conc. 33.1 g/dL (33.0-37.0); Mean Corpuscular Hgb 28.8 pg (27.0-31.0); Mean Platelet Volume 10.7 fL (7.4-10.4); Nucleated Red Blood Cells % 0 % (-); Platelet Count 146 10^3/uL (130-400); Red Blood Cell Count 3.99 10^6/uL (4.70-6.10); Red Cell Dist. Width 15.5 % (11.5-14.5); White Blood Cell Count 8.1 10^3/uL (4.8-10.8)
[2025-02-20 06:11] LABS: ALT (SGPT) 10 U/L (0-50); AST (SGOT) 19 U/L (17-59); Albumin 2.9 g/dl (3.5-5.0); Alkaline Phosphatase 93 U/L (38-126); Blood Urea Nitrogen 33 mg/dl (9-20); Calcium 9.3 mg/dl (8.4-10.2); Carbon Dioxide 26 mmol/L (22-30); Chloride 107 mmol/L (98-107); Estimated Creatinine Clearance 48 ml/min; Glucose 101 mg/dl (70-99); Magnesium 1.4 mg/dl (1.6-2.3); Phosphorus 3.4 mg/dl (2.5-4.5); Potassium 4.8 mmol/L (3.5-5.1); Sodium 142 mmol/L (135-145); Total Protein 5.7 g/dl (6.3-8.2); eGFR > 60.00
[2025-02-20 06:13] LABS: NT-proBNP 13300 pg/ml
--- NOTE | 2025-02-20 07:43 | W.PN.INTV ---
Today's Communication / Plan
Recommendations
- CT chest
- Echo
- replete electrolytes as needed
- test
Assessment
-
Assessment:
89yoM pmh HTN, afib on eliquis, NIDDM, hx tongue cancer s/p resection and left neck partial radiation, hx aspiration pneumonia admitted for aspiration pneumonia and R hydropneumothorax s/p chest tube. Admitted to the ICU for rapid afib w systolic
BP drop from 160s to 100s. Cardizem drip stopped.
Right-sided hydropneumothorax s/p chest tube
Bilateral pneumonia suspected to be due to aspiration
Sepsis in the setting of pneumonia
Acute respiratory failure with hypoxia due to pneumonia, pleural effusion + PTX
A-fib with RVR on eliquis
Leukocytosis
Elevated INR � likely due to reduced PO intake in the setting of sepsis and outpatient Eliquis use
History of tongue cancer s/p resection + XRT
History of dysphagia + aspiration
History of A-fib on Eliquis (follows with Dr. Pierre as an outpatient)
Left-sided carotid artery stenosis
Low gradient moderate aortic stenosis seen on TTE from 11/16/2024
History of alcohol use
Hypomagnesemia
Anemia
Thrombocytopenia
Plan:
B/l pneumonia
R hydropneumothorax
Sepsis
Leukocytosis
- CXR 02/19: R hydropneumothorax, b/l pulm opacities suspicious for pneumonia
- CXR 02/20: small apical pneumothorax, slightly decreased in size. Trace R pleural effusion. Similar appearance of b/l pulm opacities
- afebrile for 24h
- leukocytosis resolved
- R chest tube inserted, draining serosanguineous fluid
- blood cx: no growth at 24h
- pleural fluid cx: pending
- maintain MAP>65
- incentive spirometer, acapella
- Duonebs
- PT/OT
- cont unasyn
- IVF stopped
- CT chest pending
- pleural fluid analysis pending
Afib w RVR on eliquis
- rate control w metoprolol at home
- given cardizem 10 mg then started on cardizem drip. Drip d/c'ed
- goal HR <110
- lopressor IV
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
- elevated proBNP
- repeat echo
- keep K>4, Mg>2
DM
- ISS
- HbA1c 5.5%
Normocytic anemia
Thrombocytopenia
- stable
- monitor
- transfuse Hb<7 or Hb<8 w active bleeding
- transfuse plt<10 or plt<50 w active bleeding
Hx aspiration pneumonia
- aspiration precautions
- strict NPO per speech therapy
Diet: NPO
DVT ppx: lovenox
Code status: full code
Subjective Dataa
Subjective Data
Date of Service:
Date of Service: February 20, 2025
Subjective:
Mr. Venu Briscoe is an 89yoM pmh HTN, afib on eliquis, NIDDM, hx tongue cancer s/p resection and left neck partial radiation, hx aspiration pneumonia presented with fever, chills, and cough. CXR in ED positive for R hydropneumothorax, chest tube
inserted. He is concerned he has not been taking his oral medicines. Required 2L O2 NC overnight.
Objective Data
Data Reviewed
Vital Signs / I&O / Oxygen:
Vital Signs
Temp Pulse Resp BP Pulse Ox
97.9 F 102 17 175/89 99
02/20/25 07:01 02/20/25 07:00 02/20/25 07:00 02/20/25 07:00 02/20/25 07:00
Intake and Output
02/19/25 02/20/25 02/21/25
06:59 06:59 06:59
Intake Total 1260 / 1260
Output Total 2914 / 2914
Balance -1654 / -1654
SaO2 99
Nasal Cannula flow liters per 2
minute
Physical Exam
General: Comfortable
HEENT: Normocephalic, Anicteric and Moist Mucous Membranes
Cardiovascular: S1-S2, Irregular Rhythm and Peripheral Edema
Respiratory: Crackles and Chest Tube (on suction, no air leak)
GI: Soft, Non Distended, Flat, Non Tender and Normal Bowel Sounds
Neurology: Awake and AO x 3
Skin: Warm and Dry
Labs/Micro/Reports
Lab Data
02/20/25 05:25
02/20/25 05:25
Laboratory Results
02/19/25 02/19/25 02/19/25
08:31 12:35 15:30
PT Cancelled 26.9 H
INR Cancelled 2.49
APTT Cancelled 42.8 H
pH Cancelled
pCO2 Cancelled
pO2 Cancelled
HCO3 Cancelled
O2 Delivery Level Cancelled
Microbiology
02/19/25 11:27 Pleural Fluid Gram Stain - Preliminary
02/19/25 07:40 Nasal Swab Influenza Types A & B (AUBREY) - Final
Negative for Influenza A & B, NAAT
Negative results must be combined with clinical observations
and patient history.
Nucleic Acid Amplification test (NAAT)performed on the
[employer] platform.
[2025-02-20] MEDS: SODIUM CHLORIDE 3% FOR INHALATION 1 VIAL INH ×2 (07:49→19:53)
[2025-02-20] MEDS: DUONEB 3 ML INH ×2 (07:49→19:52)
--- NOTE | 2025-02-20 08:30 | PTCARENOTE ---
Rec'd pt at 0730 awake and alert resting in bed. Overalls states he feels ok and was asking when he could eat and was concerned that he hasn't taken any of his pills. Explanations given. Speech is somewhat garbled- which is his baseline- previous hx
of tongue CA/resection) but easily understandable. Denies pain at rest but admit that his chest tube site is tender to palpation. CAROL. GLORIA. Skin is pale pink wm and dry. Lower extrem with dry skin. Respirs are shallow but non-labored. Rec'd pt on
2L nc at 0730 with sats of 100%- changed to RA at 0800 with sats of 96%. BS are decreased at the bases and coarse 1/3 up on the R and base on the L. Coughing a moist-overall non-prod cough. Pt shown how to use the [place] as he tends to reswallow
secretions. R lat CT intact to -20 cm water suction. No air leak/tidaling or crepitus noted. Dressing over is D+I. Draining serosang draingae. Monitor AFib. + murmur. VS as documented. Denies chest pain. + pulses. TR LE Edema. Abd is soft with + BS.
Denies nausea. Expressed some frustration about not being allowed to eat. Voided in the urinal just prior to change of shift. Will get urine studies when voids again. IV LR infusing via L AC IV site. Capped int intact L hand. PT repositioned.
Awaiting wifes visit. Plan of care reviewed with pt. Call brower in reach.
[2025-02-20 08:37] LABS: Glycohemoglobin (HgbA1c) 5.5 % (4.0-5.6)
[2025-02-20] MEDS: MAGNESIUM SULFATE 100 IV (08:46)
--- NOTE | 2025-02-20 09:00 | PTCARENOTE ---
Mag 4gm rider hung at 25 ml/hr via LAC IV site. No other changes.
--- NOTE | 2025-02-20 09:40 | PTCARENOTE ---
Used the urinal- voided about 5 mls of rm urine but stated he felt burning when he voided- didn't feel the burning when he revoided 10 minutes later. The second time was able to void 70 mls of rm. Urine studies sent as ordered. Speech therapy
in seeing pt currently
--- NOTE | 2025-02-20 10:07 | PTOTSP ---
Speech Therapy f/u Note:
Pt accepted ice chips x2. He demonstrated reduced labial seal, discoordinated and prolonged oral manipulation, and suspected reduced oral control 2/2 increased coughing during oral phase. Also noted immediate s/sx of aspiration following swallow
initiation.
Impression: Pt with known moderate oral and severe pharyngeal dysphagia s/p VSE in 2023, consistent with clinical observation. PERSONAL PROPERTY APPRAISER discussed consideration for repeat VSE, however suspect pt's swallow function similar given he expressed to PERSONAL PROPERTY APPRAISER
that he had no interest in swallow/dysphagia rehabilitation and has not pursued services since video swallow. Pt also expressed to PERSONAL PROPERTY APPRAISER he would not want feeding tube of any type. Educated pt on risks of aspiration, which he previously accepted,
however pt did not verbally accept this risks, instead requested to wait until his was present. Pt with reduced insight, asking PERSONAL PROPERTY APPRAISER if he could get breakfast yet following this conversation. PERSONAL PROPERTY APPRAISER unable to safely recommend PO diet at this time
given known high risk of aspiration.
Recommend:
1. Strict NPO
2. Meds via non-oral means
3. Oral care 3-5x day
4. Not appropriate for ARHP
4. PERSONAL PROPERTY APPRAISER service to follow up re: to assess for safest and least restrictive diet level and determine need for repeat VSE
[2025-02-20 10:57] LABS: Body Fluid pH 7.44
[2025-02-20] MEDS: FLUSH (NSS) 2 FLUSH IV ×2 (11:01→12:23)
[2025-02-20] MEDS: LASIX 40 MG IV (11:01)
--- NOTE | 2025-02-20 11:05 | PTCARENOTE ---
Pt remains resting. Family in to see pt- son and daughter in law-Updated. Speech therapy in and continuing to recommend NPO. Pts voice quality is gurgly and has a moist cough with throat clearing. Sats remain 95-97% on RA. Dr Hummel in to see pt.
Fluid aspirated from CT and sent for lab studies and cytology. Drainage is serosanginuous. No air leak or crepitus. Dressing remains D+I. VS as documented. Lasix 40 mg IV given as ordered at 1101. Pt voiding yellow urine but is sl bloody tinged. Pt
admit to intermittent burning with trying to urinate. IV fluids capped per MD order at 1030. MAg rider continues. Pt turned and repositioned. Skin care given. Moisturizing lotion applied to dry scaly skin on lower legs. Call brower in reach.
Primo in as well to see pt and had a long discussion about treatment options and goals of care for pt-feeding tube discussed. No decisions made.
[2025-02-20 11:13] LABS: Body Fluid Glucose 77 mg/dl; Body Fluid LDH 293 U/L; Body Fluid Protein 2.8 g/dl; Body Fluid Triglycerides 30 mg/dl
[2025-02-20 11:43] LABS: Glucose - Point of Care 95 mg/dl (70-99)
--- NOTE | 2025-02-20 12:06 | PTCARENOTE ---
ECHO completed. No changes in assessment. Dr. Ruiz updated on bloody tinged urine.
[2025-02-20] MEDS: LOPRESSOR 2.5 MG IV ×2 (12:22→17:40)
[2025-02-20 13:10] LABS: Urine Albumin 2+ (Neg - Trace); Urine Bilirubin Negative (Negative); Urine Character Slightly Cloudy (Clear); Urine Glucose Negative (Negative); Urine Ketone 1+ (Negative); Urine Leukocyte Negative (Negative); Urine Nitrite Negative (Negative); Urine Occult Blood 4+ (Negative); Urine Urobilinogen Negative (Neg - 1+)
[2025-02-20 13:16] LABS: Urine Color Pink
--- NOTE | 2025-02-20 14:23 | PTCARENOTE ---
Taken at [address] of the Chest. No changes in assessment. Still voiding bloody tinged urine but several times quantities were better. UA sent earlier. Upon return Pt and his both said they are leaning toward hospice and Mr. Briscoe said he
really wants to just go home. Support given and I let them know I would notify his physicians. They are aware it can't be today with the chest tube in place. Repositioned.
[2025-02-20 14:48] LABS: Urine Red Blood Cell >100 /HPF (0-2); Urine Squamous Cell 0-2 /LPF (Few); Urine Urothelial Cell 0-2 /LPF (FEW)
[2025-02-20 14:49] LABS: Urine White Cell 0-2 /HPF (0-5)
--- NOTE | 2025-02-20 16:28 | CM ---
Patient seen at bedside with physicians. Patient lives with in a townhouse with two steps to enter and first floor set up. Patient previously uses no AD to ambulate in the home and a SPC in the community.
Patient does have a walker per patient family. Patient has had [facility], and has been at [facility] in August of last year and would be open to returning if needed. Patient PCP is Dr. Barraza and he uses the pharmacy on [facility] in [place].
Patient is no longer driving due to vision. Patient son and at bedside. CM will continue to follow for discharge planning needs.
Plan; home with VN vs SNF pending assessments.
--- NOTE | 2025-02-20 16:30 | PTCARENOTE ---
Dozing on and off this afternoon. Denies discomfort. Coughing a moist cough- did get some whitish/dominguez secretions via the [place]- but can only get secretions if right there with the [place] otherwise swallows them- cannot cough them out on his own
and he did not want to use the [place] on his own. Remains on RA with sats of 95-96%. VS as documented. HR anywhere from 106-126. On bedpan earlier but no results. Continues to void in the urinal frequently- bloody tinged urine- is somewhat trading specialist
bloody tinged than earlier. Mouth, skin and brittany care given. Around 1430 rebladder scanned pt for 284 mls of urine. Even the littlest water with the water swabs makes him cough. Repositioned. Call brower in reach. PT and OT to work with pt tomorrow.
[2025-02-20 17:36] LABS: Glucose - Point of Care 109 mg/dl (70-99)
--- NOTE | 2025-02-20 17:58 | PTCARENOTE ---
No changes in assessment. Resting. States he is just tired and wants to take a nap. Wanted to stay on his back
--- NOTE | 2025-02-20 19:10 | W.PN.HOSP.TC ---
Addendum entered and electronically signed by Nyla Tillman MD 02/20/25 20:21:
I saw and evaluated the patient independently. I reviewed the resident�s note and agree with findings and plan as documented by Dr. Ruiz.
GENERAL: well developed, well nourished, male in no apparent distress
HEENT: NC/AT--left neck s/p surgical resection with firm tight skin c/w radiation
HEART: regular rate and rhythm, +S1, +S2
LUNGS : decreased BS bilaterally--chest tube right lung field
ABDOM: soft, nontender, nondistended, + bowel sounds
EXT: no cyanosis, clubbing, or edema
NEUROLOGIC: grossly intact
Sepsis due to bilateral pneumonia with right hydropneumothorax--s/p chest tube with 2.1L fluid removed--studies pending--apprec pulm--CT scan shows multifocal pneumonia in both lungs, trace left pleural effusion, small right hydropneumothorax with
chest tube in place--blood cultures neg--influenza A, B, Legionella, strep pneumo urine antigen are all negative--cont unasyn--follow CXR- Continue incentive spirometer, DuoNebs
Paroxysmal Atrial fibrillation with RVR-- Patient is rate controlled and hemodynamically stable- Patient is on Lovenox for anticoagulation- Continue Lopressor IV and keep heart rate less than 110- Repeat echocardiogram shows left ventricular
ejection fraction of 55 to 60%
Heart failure with preserved ejection fraction--no acute exacerbation- Most recent shows left ventricular ejection fraction of 55 to 60%- Monitor ins and outs, fluid restriction, sodium restriction- Keep potassium > 4 and magnesium> 2
History of aspiration pneumonia and dysphagia-- Speech therapy recommends strict n.p.o., meds via nonoral means, oral care, ANALYST BUSINESS ANALYSIS-- Discussed with family regarding feeding tube versus hospice--family leaning towards hospice
DVT proph--Lovenox
Full code
Original Note:
Today's Communication/Plan
-
- follow up pleural fluid cultures
Assessment / Plan
Assessment / Plan
Sepsis due to bilateral pneumonia with right hydropneumothorax:
- Confirmed on chest x-ray 02/19
-Chest CT shows multifocal pneumonia in both lungs, trace left pleural effusion, small right hydropneumothorax with chest tube in place, and severe coronary artery calcification
- Patient has a right chest tube that is draining serosanguineous fluid, over 2.5 L in the past 24 hours
- Pleural fluid culture is pending, blood cultures are negative, influenza A, B, Legionella, strep pneumo urine antigen are all negative
- Continue incentive spirometer, DuoNebs
- Continue Unasyn
- PT/OT
- Patient will get repeat chest x-ray in a.m.
Atrial fibrillation with RVR:
- Patient is rate controlled and hemodynamically stable
- Patient is on Lovenox for anticoagulation
- Continue Lopressor IV and keep heart rate less than 110
- Continue on telemetry
- Repeat echocardiogram shows left ventricular ejection fraction of 55 to 60%
Heart failure with preserved ejection fraction:
- Most recent shows left ventricular ejection fraction of 55 to 60%
- IV Lasix 40 Mg was given once
- Monitor ins and outs, fluid restriction, sodium restriction
- Keep potassium > 4 and magnesium> 2
History of aspiration pneumonia and dysphagia:
- Speech therapy recommends strict n.p.o., meds via nonoral means, oral care, ANALYST BUSINESS ANALYSIS
- Discussed with family regarding feeding tube versus hospice
DVT prophylaxis Lovenox
Full code
Anticipated Discharge: 24 - 48 hours
Subjective/Interval History
-
Date of Service: February 20, 2025
Patient's son and [id number] in the room state that he has been losing weight due to dysphagia and history of aspiration, chronically ill, and has limited mobility
Objective Data
-
Vital Signs:
Vital Signs
Temp Pulse Resp BP Pulse Ox
98.1 F 114 25 137/95 97
02/20/25 17:00 02/20/25 17:40 02/20/25 17:00 02/20/25 17:40 02/20/25 17:39
I&O
02/19/25 02/20/25 02/21/25
06:59 06:59 06:59
Intake Total 1260 / 1340 660 / 660
Output Total 2914 / 2914 2660 / 2660
Balance -1654 / -1574 -1999 /
Review of Systems
-
History Source: Patient
All other systems: Reviewed and negative
Physical Exam
-
General: Appears Chronically Ill
HEENT: Normocephalic and Atraumatic
Respiratory: Rales (Bilaterally), Rhonchi (Bilaterally) and Chest Tubes (Right-sided chest tube)
Cardiac: S1/S2 and Irregular Rhythm
GI: Soft, Nontender, Nondistended and Normal Bowel Sounds
Genito-urinary: No Costovertebral Tender
Musculoskeletal: No Clubbing, No Cyanosis and No Edema
Neuro: AO x 3
Hematologic / Lymphatic: No Lymphadenopathy
Psych: Calm
Data Reviewed
-
Labs: Labs Reviewed by me and Discussed with Physician
[2025-02-21] VITALS (22 sets, daily range): BP systolic 114–159; BP diastolic 63–105; PULSE 101–122; O2SAT 96–97; BMI 25.1
--- NOTE | 2025-02-21 | PTCARENOTE ---
assumed care of pt from previous RN. pt A&Ox4, forgetful at times, resting in bed at time of assessment. A fib on tele-monitor. POX 94-95% on RA. R lateral CT to -20cm wall suction, draining serosanguineous drainage, no air leaks noted. abd s/n,
+BS. pt NPO, maintained on aspiration precautions. voiding clear, rm colored urine. scant blood noted on tip of penis. pt denies any related pain w/ urination. PIV intact. see worklist for complete nursing assessment, interventions, VS, and I&Os.
[2025-02-21 00:24] LABS: Glucose - Point of Care 128 mg/dl (70-99)
[2025-02-21] MEDS: LOPRESSOR IV (00:33)
[2025-02-21] MEDS: NOVOLOG FLEXPEN-LOW RESISTANCE SC ×3 (00:33→23:21)
--- NOTE | 2025-02-21 00:49 | W.PN.UPDATE ---
Addendum entered and electronically signed by TRAY Deleon 02/21/25 00:55:
Delete note, enter on wrong Patient�
Original Note:
Update Note
Progress Note Update
Patient arrived in the ICU minimally responsive on non-rebreather and not following commands. Patient transition to Bipap 16/03. A line placed for concerns that patient could decompensate (500ml fluid bolus and levophed for sepsis. �(Patient on
tamiflu). Neuro status improved.
[2025-02-21] MEDS: UNASYN IV ×4 (03:44→20:59)
--- NOTE | 2025-02-21 04:00 | PTCARENOTE ---
assessment remains unchanged. VSS. no acute changes.
[2025-02-21] MEDS: LOVENOX 80 MG SC (05:02)
[2025-02-21] MEDS: LOPRESSOR 2.5 MG IV (05:03)
[2025-02-21 05:23] LABS: % Basophils 0.5 % (0-2); % Eosinophils 0.7 % (0-6); % Immature Granulocytes 0.3 % (0-0.5); % Lymphocytes 17.1 % (20.5-51.1); % Neutrophils 73.4 % (42.2-75.2); Absolute Eosinophils 0.1 10^3/uL (0-0.7); Absolute Lymphocytes 1.3 10^3/uL (1.2-3.4); Absolute Monocytes 0.6 10^3/uL (0.1-0.6); Absolute Neutrophils 5.6 10^3/uL (1.4-6.5); Hematocrit 35.2 % (39.0-52.0); Hemoglobin 11.8 g/dL (13.0-18.0); Mean Corp Hgb Conc. 33.5 g/dL (33.0-37.0); Mean Corpuscular Hgb 28.4 pg (27.0-31.0); Mean Corpuscular Volume 84.8 fL (80.0-94.0); Mean Platelet Volume 10.6 fL (7.4-10.4); Nucleated Red Blood Cells % 0 % (-); Platelet Count 164 10^3/uL (130-400); Red Blood Cell Count 4.15 10^6/uL (4.70-6.10); Red Cell Dist. Width 15.1 % (11.5-14.5); White Blood Cell Count 7.6 10^3/uL (4.8-10.8)
[2025-02-21 05:54] LABS: ALT (SGPT) 11 U/L (0-50); AST (SGOT) 19 U/L (17-59); Alkaline Phosphatase 89 U/L (38-126); Blood Urea Nitrogen 32 mg/dl (9-20); Calcium 9.7 mg/dl (8.4-10.2); Carbon Dioxide 25 mmol/L (22-30); Chloride 107 mmol/L (98-107); Estimated Creatinine Clearance 44 ml/min; Glucose 145 mg/dl (70-99); Potassium 4.2 mmol/L (3.5-5.1); Sodium 144 mmol/L (135-145); Total Bilirubin 0.9 mg/dl (0.2-1.3); Total Protein 5.9 g/dl (6.3-8.2); eGFR 58.17
--- NOTE | 2025-02-21 07:30 | W.PN.PUL3 ---
Addendum entered and electronically signed by Dionne Hummel MD 02/21/25 16:29:
-Patient tolerated chest tube clamping well, 4 hrs follow up CXR unchanged.
-Leave chest tube clamped overnight, if morning CXR stable. will d/c chest tube
Original Note:
Today's Communication / Plan
-
- Continue diuresis, Lasix 20 mg IV daily
- Clamp chest tube, follow-up chest x-ray in 4 hours at 2 PM
Assessment
-
Patient is a 89-year-old male non-smoker with a past medical history of DM type II, hypertension, hyperlipidemia, tongue cancer s/p XRT, A-fib on Eliquis, aortic stenosis, RBBB and left carotid artery stenosis who presented with fevers, chills and
cough. cough. Patient noted to have a temperature of 101.5 �F at home. He reportedly has a history of aspiration pneumonia. Per the , he is chronically ill with limited mobility, using a walker to transfer. He has had significant weight loss
recently and reduced oral intake due to history of dysphagia/aspiration. He has a history of head neck cancer resected about 30 years ago, treated with radiation. Never had a feeding tube. Initially in the ER he was febrile to 100.6 �F, pulse
rate 140 (A-fib with RVR), tachypneic to 26 breaths/min, BP 162/102 and saturating 93% on room air. Initial labs showed leukocytosis to 12.2, Hb 13.2, INR 2.49, urinalysis negative for UTI, and COVID-19 antigen negative. Flu A/B swab was negative
and blood cultures collected. CXR showed a right-sided hydropneumothorax with moderate right-sided pleural effusion and bilateral pulmonary opacities concerning for pneumonia. Given his rapid A-fib, initially given Cardizem 10 mg and then started
on Cardizem drip, given DuoNebs, Tylenol, Unasyn and 1 L NS 0.9%. IR was consulted and they inserted a 14 Filipino Thal-Quick chest tube into the right hemithorax with removal of clear serous fluid. Given the patient's rapid A-fib with blood
pressure dropping from the 160s to the 100s, he was admitted to the ICU for closer monitoring and [employer]v Repair Technician services was consulted for additional management/recommendations
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
aspiration, SLEETMUTE
Assessment and plan:
#1. Acute hypoxic respiratory failure with multifocal pneumonia, suspect aspiration.
-Continue IV Unasyn, follow-up on culture and sensitivities. Influenza A, B-. Legionella and strep pneumo urine antigen negative. Blood cultures negative so far
-Patient has known history of aspiration is at high risk of pneumonia in the setting of oral feeding
-Follow-up chest stable
#2. Right-sided hydropneumothorax s/p chest tube. Exudative, ?Parapneumonic effusion versus empyema. With prior history of malignancy, malignant etiologies are also in differential.
-Pleural fluid studies suggestive of exudate, cytology pending, cultures negative so far
- No chest tube output since 6 PM yesterday, chest x-ray stable this morning.
- Clamp chest tube, follow-up chest x-ray in 4 hours at 2 PM today. If patient tolerates and x-ray is unchanged, will leave clamped overnight with plan for chest tube removal in a.m.
#3. A-fib with RVR. Heart rate in low 100s, hemodynamically stable.
-Increase Lopressor to 5 mg IV Q6
-Patient currently on Lovenox 80 mg SQ every 12 for anticoagulation
-Continue telemetry
#4. 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
- Discontinued Ringer lactate infusion, started diuresis (02/20)
- Elevated PASP noted, however patient in fluid overload during the study. 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 Diurese as tolerated.
- Lasix 20 mg IV daily
#5. History of tongue cancer s/p resection + XRT, also h/o dysphagia + aspiration
-Currently n.p.o., on prior imagings, trachea noted to be elevated to left.
-Primary team and palliative care discussing with the patient regarding feeding tube versus more comfort focused approach/hospice
Total time spent on this consultation/encounter _53___ minutes which includes review of history, physical exam, medications, laboratory data, personal review of imaging, extensive review of outpatient records, discussion with care team and
respiratory therapy.
Data:
CT Chest 01/2025: 1. Small right hydropneumothorax with a chest tube in place.
2. Trace left pleural effusion.
3. Multifocal pneumonia in both lungs, most confluent in the right lower lobe.
4. Severe coronary artery calcifications.
ECHO 01/2025: Small left ventricular size with normal systolic function. LVEF 55-60%.
Mildly dilated right ventricle with normal systolic function.
Paradoxical low-flow low gradient aortic stenosis (14/8 mmHg, ERMA 1.1 cm2, DVI 0.35).
Mild aortic regurgitation.
Moderate tricuspid regurgitation. PASP 53 mmHg.
Compared to prior echocardiogram in November 2024, aortic valve gradients are
stable. PASP has increased from 35-40 mmHg to 53 mmHg.
Subjective Data
-
Date of Service:
Date of Service: February 21, 2025
Subjective:
Patient awake alert, sitting in chair, no acute distress.
Review of Systems
Genitourinary: Other (All 14 systems reviewed and negative except as stated above in the history of present illness.)
Objective Data
Data Reviewed
Vital Signs / I&O / Oxygen:
Vital Signs
Temp Pulse Resp BP Pulse Ox
97.5 F 97 19 146/85 94
02/21/25 04:30 02/21/25 06:00 02/21/25 06:00 02/21/25 06:00 02/21/25 06:00
Intake and Output
02/20/25 02/21/25 02/22/25
06:59 06:59 06:59
Intake Total 1260 / 1340 780 / 780
Output Total 2914 / 2914 3180 / 3180
Balance -1654 / -1574 -2400 / -2400
SaO2 94
Nasal Cannula flow liters per 1.5
minute
Physical Exam
General: Comfortable
HEENT: Normocephalic
Cardiovascular: S1-S2 and Peripheral Edema (Trace pedal edema)
Respiratory: Clear and Non-Labored Respirations
GI: Soft and Non Distended
Neurology: Awake and Alert
Skin: Warm
Labs/Micro/Reports
Lab Data
02/21/25 05:02
02/21/25 05:02
Microbiology
02/19/25 09:31 Blood/Venous Blood Culture - Preliminary
No Growth in 24 hours- Final report to follow
02/19/25 11:27 Pleural Fluid Body Fluid Culture - Preliminary
No Growth After 18-24 Hours
02/19/25 11:27 Pleural Fluid Gram Stain - Preliminary
02/19/25 00:00 Urine Legionella Urinary Antigen - Final
Negative for Legionella pneumophila Serogroup 1 antigen.
A negative result does not rule out the possiblity of
Legionella infection due to other serogroups or species of
Legionella. Clinical correlation is recommended.
02/19/25 00:00 Urine Streptococcus pneumoniae Antigen (M - Final
Negative for Streptococcus pneumoniae antigen.
A negative result does not exclude infection with
Streptococcus pneumoniae. Clinical correlation is
recommended.
02/19/25 07:44 Blood/Venous Blood Culture - Preliminary
No Growth in 24 hours- Final report to follow
02/19/25 07:40 Nasal Swab Influenza Types A & B (AUBREY) - Final
Negative for Influenza A & B, NAAT
Negative results must be combined with clinical observations
and patient history.
Nucleic Acid Amplification test (NAAT)performed on the
[employer] platform.
--- NOTE | 2025-02-21 07:34 | W.PN.CD ---
Today's Communication / Plan
-
-HR now adequately controlled
- on IV metoprolol. Transition to oral when able to take PO
-resume Elqiuis when able to take PO
-
Cardiology will sign off . Call if assistance required
Impression / Plan
-
Venu Briscoe is an 89-year-old man with coronary artery disease (abnormal stress test), HFpEF, hypertension, atrial fibrillation on Eliquis who presents with aspiration pneumonia. Cardiology is consulted for atrial fibrillation with RVR which
has since resolved.
Steam Box Hand: Dr. Pierre
Persistent atrial fibrillation
-HR now adequately controlled
- on IV metoprolol. Transition to oral when able to take PO
-Continue Eliquis 5 mg twice daily. [id number] 4. If he is not able to take pills, he does NOT need bridging with heparin.
-Recent TTE in November. Do not need to repeat.
Aspiration pneumonia
-Antibiotics per primary team
-Status post chest tube for right sided hydropneumothorax
Coronary artery disease
-Based on abnormal stress test. Currently asymptomatic.
-Continue statin. No aspirin due to systemic anticoagulation.
Hypertension
-Hypertensive urgency on admission but suspect due to pain and dyspnea. Improved after chest tube
-BP is now well-controlled.
Physical Exam
Vital Signs/Labs
Vital Signs
Temp Pulse Resp BP Pulse Ox
97.5 F 97 19 146/85 94
02/21/25 04:30 02/21/25 06:00 02/21/25 06:00 02/21/25 06:00 02/21/25 06:00
02/20/25 02/21/25 02/22/25
06:59 06:59 06:59
Actual Weight 79.3 kg
02/21/25 05:02
02/21/25 05:02
PT 26.9 Sec (11.4-14.6) H 02/19/25 15:30
INR 2.49 02/19/25 15:30
APTT 42.8 Sec (23.4-35.0) H 02/19/25 15:30
Magnesium 1.4 mg/dl (1.6-2.3) L 02/20/25 05:25
02/20/25
05:25
[id number] Pept [id number]
Physical Exam
Constitutional: No acute distress
Cardiovascular: Rhythm/rate is irregular
Respiratory: Wheeze Absent and Rhonchi Absent
GI: Soft and Non tender
Neuro/Psych: Alert
Other: Other (no edema)
Data Reviewed
-
Date of Service: February 21, 2025
Medical Decision Making: Reviewed Test Results
EKG: Other (telemetry afib)
Medical Tests (PFT, Pathology etc): Report Reviewed by me
Labs: Labs Reviewed by me
[2025-02-21] MEDS: DUONEB 3 ML INH ×2 (07:35→19:34)
[2025-02-21] MEDS: SODIUM CHLORIDE 3% FOR INHALATION 1 VIAL INH ×2 (07:36→19:34)
--- NOTE | 2025-02-21 09:35 | HOSPNOTE ---
Addendum entered by Brigid Dan RN 02/21/25 11:52:
Long conversation with patient and family. The patient will remain a full code and would like to move forward with PEG tube placement. At this time the patient and family do not wish for hospice care. I will continue to be available if patient
and/or family
needs more information on hospice services.
Original Note:
Referral received and will meet with family at 10am. More information to come.
[2025-02-21] MEDS: LASIX 20 MG IV (10:49)
--- NOTE | 2025-02-21 11:13 | PN.CDI ---
CDI
- -
CDI:
Physician Documentation Request
Admit Date: 02/19/25 10:38
Dear Doctor,
Please review the following and provide your response in the progress notes.
Clinical Indicators:
- 02/20 PN 'Paroxysmal Atrial fibrillation with RVR'
- 02/21 Cardiology 'Persistent atrial fibrillation'
If possible, please provide further specificity regarding atrial fibrillation, such as:
Paroxysmal atrial fibrillation - terminates spontaneously or with intervention within 7 days of onset
Persistent atrial fibrillation - episodes of continuous AF that last more than 7 days and do not self-terminate
Permanent atrial fibrillation - when a decision has been made to accept the presence of AF and there is no further attempt to restore or maintain sinus rhythm
Other - please specify
Use of terms such as suspected, likely, concern for, or probable (associated with a specific diagnosis that is being evaluated, monitored, or treated as if it exists) are acceptable and can be coded in the inpatient setting, when documented at the
time of discharge.
Thank you,
Dedrick Alanis RN
CDI Specialist
Please use your independent medical judgment in providing your response.
[2025-02-21 11:59] LABS: Glucose - Point of Care 176 mg/dl (70-99)
[2025-02-21] MEDS: LOPRESSOR 5 MG IV ×3 (12:31→23:21)
[2025-02-21] MEDS: NOVOLOG FLEXPEN-LOW RESISTANCE 1 UNITS SC ×2 (12:33→17:51)
--- NOTE | 2025-02-21 16:16 | CM ---
Patient seen at bedside with physicians and patient family. Patient family discussed options and hospice was reviewed. Patient now planning on peg tube placement per physicians. CM will continue to follow for discharge planning needs.
Plan; SNF vs home with VN; watch for PT/OT assessment and medical treatment plan
[2025-02-21 17:50] LABS: Glucose - Point of Care 167 mg/dl (70-99)
--- NOTE | 2025-02-21 17:53 | W.PN.HOSP.TC ---
Addendum entered and electronically signed by Nyla Tillman MD 02/21/25 18:51:
I saw and evaluated the patient independently. I reviewed the resident�s note and agree with findings and plan as documented by Dr. Ruiz.
GENERAL: well developed, well nourished, male in no apparent distress
HEENT: NC/AT--left neck s/p surgical resection with firm tight skin c/w radiation
HEART: regular rate and rhythm, +S1, +S2
LUNGS : decreased BS bilaterally--chest tube right lung field
ABDOM: soft, nontender, nondistended, + bowel sounds
EXT: no cyanosis, clubbing, or edema
NEUROLOGIC: grossly intact
Sepsis due to bilateral pneumonia with right hydropneumothorax--s/p chest tube with 2.1L fluid removed--apprec pulm--CT scan shows multifocal pneumonia in both lungs, trace left pleural effusion, small right hydropneumothorax with chest tube in
place--blood cultures neg--influenza A, B, Legionella, strep pneumo urine antigen are all negative--cont unasyn--follow CXR- Continue incentive spirometer, DuoNebs
Persistent Atrial fibrillation with RVR-- Patient is rate controlled and hemodynamically stable- Patient is on Lovenox for anticoagulation- Continue Lopressor IV and keep heart rate less than 110- Repeat echocardiogram shows left ventricular
ejection fraction of 55 to 60%
hematuria--likely due to lovenox--change to DVT prophylaxis dosing
Heart failure with preserved ejection fraction--no acute exacerbation- Most recent shows left ventricular ejection fraction of 55 to 60%- Monitor ins and outs, fluid restriction, sodium restriction- Keep potassium > 4 and magnesium> 2
History of aspiration pneumonia and dysphagia-- Speech therapy recommends strict n.p.o., meds via nonoral means, oral care, INCLUSION INTERN-- Discussed with family regarding feeding tube versus hospice--family leaning towards hospice 02/20 but today now wants
PEG tube 02/21--will consult GI
DVT proph--Lovenox
Full code
Original Note:
Today's Communication/Plan
-
- consulted GI regarding placement of feeding tube
Assessment / Plan
Assessment / Plan
Sepsis due to bilateral pneumonia with right hydropneumothorax:
- Confirmed on chest x-ray 02/19, repeat chest x-ray on 02/21/25 shows severe right and middle lobe pneumonia, small right hydropneumothorax, moderate pneumonia in the lingula, mildly decreased lung volumes.
- Chest CT shows multifocal pneumonia in both lungs, trace left pleural effusion, small right hydropneumothorax with chest tube in place, and severe coronary artery calcification
- Patient has a right chest tube that is draining serosanguineous fluid that is having no output since 6 PM yesterday, chest tube clamped and based on follow-up x-ray care team coordinator scheduler will remove in a.m.
- Pleural fluid culture is negative, blood cultures are negative, influenza A, B, Legionella, strep pneumo urine antigen are all negative
- Continue incentive spirometer to help improve lung expansion and oxygenation. DuoNebs to help reduce chronic airway inflammation.
- Continue Unasyn
- PT/OT
Paroxysmal Atrial fibrillation with RVR:
- No dizziness, chest palpitations, syncope, weakness.
- Patient is rate controlled and hemodynamically stable
- Patient is on Lovenox for anticoagulation
- Continue Lopressor IV and keep heart rate less than 110
- Continue on telemetry
- Repeat echocardiogram shows left ventricular ejection fraction of 55 to 60%
- Cardiology saw patient and recommended changing switching anticoagulation back to Eliquis when patient is able to take PO
Heart failure with preserved ejection fraction:
- Most recent shows left ventricular ejection fraction of 55 to 60%
- IV Lasix 40 Mg was given once
- Monitor ins and outs, fluid restriction, sodium restriction
- Keep potassium > 4 and magnesium> 2
History of aspiration pneumonia and dysphagia:
- Speech therapy recommends strict n.p.o., meds via nonoral means, oral care, INCLUSION INTERN
- Discussed with family regarding feeding tube versus hospice and family would like to have feeding tube
- GI is consulted regarding placement of the PEG tube
DVT prophylaxis Lovenox
Full code
Anticipated Discharge: 24 - 48 hours
Subjective/Interval History
-
Date of Service: February 21, 2025
Hospice care was discussed with the family with hospice nurse present.
Objective Data
-
Labs:
Laboratory Results
02/21/25
05:02
Sodium 144
Potassium 4.2
Chloride 107
Carbon Dioxide 25
BUN 32 H
Creatinine 1.2
Glucose 145 H
Calcium 9.7
Total Bilirubin 0.9
AST 19
ALT 11
Alkaline Phosphatase 89
Vital Signs:
Vital Signs
Temp Pulse Resp BP Pulse Ox
97.4 F 111 25 160/84 96
02/21/25 17:07 02/21/25 15:42 02/21/25 15:42 02/21/25 17:50 02/21/25 16:02
I&O
02/20/25 02/21/25 02/22/25
06:59 06:59 06:59
Intake Total 1260 / 1340 780 / 780 240 / 240
Output Total 2914 / 2914 3180 / 3180 700 / 700
Balance -1654 / -1574 -2400 / -2400 -460 / -460
Review of Systems
-
History Source: Patient
All other systems: Reviewed and negative
Physical Exam
-
General: Appears Chronically Ill
HEENT: Normocephalic and Atraumatic
Respiratory: Rales (Bilaterally), Rhonchi (Bilaterally) and Chest Tubes (Right-sided chest tube)
Cardiac: S1/S2 and Irregular Rhythm
GI: Soft, Nontender, Nondistended and Normal Bowel Sounds
Genito-urinary: No Costovertebral Tender
Musculoskeletal: No Clubbing, No Cyanosis and No Edema
Neuro: AO x 3
Hematologic / Lymphatic: No Lymphadenopathy
Psych: Calm
Data Reviewed
-
Labs: Labs Reviewed by me and Discussed with Physician
[2025-02-21] MEDS: LOVENOX SC (18:02)
--- NOTE | 2025-02-21 18:04 | SUR.OPER ---
spoke with pt this am who states unequivocally that he did not want feeding tube. He didn't want dht/peg. Made him aware that even if he were to get feeding tube would not reduce aspiration orally. He asked why he couldn't have water. Reminded
that he aspirated. 'how do you know' reminded he failed video swallow. When I asked him again this evening given decision to consult GI, pt said no I want the tube, my grandson who is a pharmacist said I should get it. Discussed with
Primo who is aware. Pt again reminded that he still couldn't have po given silent aspiration on all textures with video swallow in October. Speech at bedside, recommended 1 ice chip every couple of hours with staff only. Pt given 1 chip,
delayed cough, Rang brower an hour later requesting more. Made aware, not for another hour. Pt also noted to have intermittent bleeding from penis. Urine with blood at times. Pt reports issue not present prior to admission. He reports no
discomfort with urination. Marvin Tillman and Sara aware. Orders to hold this evening's dose of lovenox. Pt aware.
--- NOTE | 2025-02-21 19:33 | PTCARENOTE ---
On assessment pt AAOx3, denies pain and SOB at this time, AFIB on the monitor, RA 95%, NPO, BM during the day, voiding in urinal, small amount of blood noted when voiding, Lovenox held HS, bed alarm on and call brower in reach.
chest tube clamped overnight, will remove tomorrow per
[2025-02-21 23:18] LABS: Glucose - Point of Care 144 mg/dl (70-99)
[2025-02-22] VITALS (13 sets, daily range): BP systolic 113–179; BP diastolic 57–120; BMI 23.0
[2025-02-22] MEDS: UNASYN IV ×4 (03:43→22:38)
[2025-02-22 04:16] LABS: Hematocrit 34.6 % (39.0-52.0); Hemoglobin 11.4 g/dL (13.0-18.0); Mean Corp Hgb Conc. 32.9 g/dL (33.0-37.0); Mean Corpuscular Hgb 28.2 pg (27.0-31.0); Mean Corpuscular Volume 85.6 fL (80.0-94.0); Mean Platelet Volume 10.6 fL (7.4-10.4); Platelet Count 180 10^3/uL (130-400); Red Blood Cell Count 4.04 10^6/uL (4.70-6.10); Red Cell Dist. Width 15.2 % (11.5-14.5); White Blood Cell Count 7.4 10^3/uL (4.8-10.8)
[2025-02-22 04:43] LABS: Blood Urea Nitrogen 35 mg/dl (9-20); Carbon Dioxide 26 mmol/L (22-30); Chloride 106 mmol/L (98-107); Estimated Creatinine Clearance 48 ml/min; Glucose 162 mg/dl (70-99); Potassium 3.9 mmol/L (3.5-5.1); Sodium 148 mmol/L (135-145); eGFR > 60.00
[2025-02-22 06:09] LABS: Glucose - Point of Care 159 mg/dl (70-99)
[2025-02-22] MEDS: LOPRESSOR 5 MG IV ×4 (06:09→23:20)
[2025-02-22] MEDS: NOVOLOG FLEXPEN-LOW RESISTANCE 1 UNITS SC ×2 (06:10→11:59)
[2025-02-22] MEDS: SODIUM CHLORIDE 3% FOR INHALATION 1 VIAL INH ×2 (07:03→19:27)
[2025-02-22] MEDS: DUONEB 3 ML INH ×2 (07:03→19:27)
--- NOTE | 2025-02-22 07:11 | CON.GI ---
Addendum entered and electronically signed by Callum Evans DO 02/22/25 15:05:
I saw and examined the patient.
The ENGINEERING TEACHER's note was reviewed and I agree with the note.
Comment: Reviewed recent discussions with family and discussed with primary team. Suspect dysphagia multifactorial as below and PEG does NOT reduce the risk for aspiration. Plan for tentative EGD/PEG tomorrow AM if patient continues to remain stable
from a cardiopulmonary standpoint. Hold lovenox evening dose of lovenox, may resume 24 hrs post-EGD/PEG. Repeat INR tomorrow AM. Otherwise, no other contraindications in regards to PEG placement. See rest of care and recommendations as outlined
below.
Discussed with primary internal medicine team. GI will continue to follow.
Addendum entered and electronically signed by TRAY Mcclure 02/22/25 13:27:
discussed risk/benefits of peg with family and patient in setting of prior radiation years ago. Pt agreeable to proceed and able to consent for self. Peg does not eliminate risk of aspiration. Family aiming for home but also open to possible
SNF though pt has not done well with SNF in past. To further review with case management. If home discharge will need 1-2 week follow up for peg check after admission with goal for bolus feeds. s/p dietary consult with tube feeds as noted. K and
mag stable this am phos stable 02/20. Chest tube now out and doing well reviewed with Dr. Tillman via tiger text stable if no issue overnight to proceed with EGD/peg in Am. Has been on IV Unasyn with current resp status. Cont NPO, will hold
Lovenox. Rec for resuming Eliquis per Dr. Evans post procedure.
Original Note:
Consultation
-
Date/Time Consultation Requested: 02/22/24 1515
Date/Time Consultation Performed: 02/22/25 0710
Requesting Provider: Mina Ruiz MD
Performing Provider: TRAY Polanco, Callum Evans DO
Reason for Consultation: peg evaluation
Medical History
Chief Complaint / HPI
Chief Complaint: dysphagia
History of Present Illness:
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
anemia, PAD with admission 02/19 with cough and chills with concern for b/l PNA with right sided pneumothorax and left sided pleural effusion with placement of chest tube. He was also noted with afib with RVR with cardiology evaluation and
hematuria during admission. He was seen by speech therapy with noted VSE in October with silent aspiration with all trials and decided to eat/drink despite recommendations. He was recommended non oral diet. He did review with medical team for
hospice vs consider peg and has opted for peg. He has declined DHT for temporary feeding per nursing staff. labs notable for hbg 11 range, WBC 12,200 on admission then normalized, hypernatremia, hyperglycemia and hypoalbuminemia.
In review with patient distant hx tongue CA with resection and prior radiation. He denies hx prior peg. He denies feeling of odynophagia or dysphagia but has failed VSE and concern for aspiration. He denies GERD, nausea, vomiting, abdominal
pain, diarrhea, constipation or rectal bleeding. No hx EGD or past and colonoscopy recalls as normal.
Past Medical History
Past Medical History: Arrhythmias (afib- Eliquis prior to admission), CAD, Cancer (tongue CA ), HTN, Hypothyroidism, NIDDM, Valvular Disease () and Other (aspiration, carotid occlusion and stenosis, spinal stenosis, anemia, PAD)
Past Surgical History: Other (tongue resection, adrenalectomy)
Social History
Tobacco: Non-Smoker
Alcohol: Occasional
Drug: None
Personal:
Living: With Family
Employment: Retired
Family History
Family History: Other (denies family hx colon CA or polyps)
Allergies / Home Medications
Allergy/AdvReac Type Severity Reaction Status Date / Time
penicillin G Allergy DRY MOUTH Verified 02/19/25 07:36
�Medication �Instructions �Recorded
atorvastatin 80 mg tablet (Lipitor) 80 mg PO HS High cholesterol 08/07/22
levothyroxine 50 mcg tablet 50 mcg PO DAILY Thyroid 08/07/22
pregabalin 75 mg capsule (Lyrica) 75 mg PO BID Pain 08/07/22
omega 0-csw-cgo-fish oil 1,000 mg 1 cap PO DAILY Supplement 04/06/23
(120 mg-180 mg) capsule (Fish Oil)
apixaban 5 mg tablet (Eliquis) 5 mg PO BID Blood Clot 02/19/25
Prevention/Tx
docusate sodium 100 mg capsule 200 mg PO BID Constipation 02/19/25
fluoride (sodium) 1.1 % dental 1 applic dental DAILY DENTAL 02/19/25
cream (Denta 5000 Plus)
furosemide 20 mg tablet 20 mg PO .MOWEFR Fluid 02/19/25
Retention/Swelling
glimepiride 1 mg tablet 1 mg PO DAILY Diabetes 02/19/25
hydrocodone 7.5 mg-acetaminophen 1 tab PO Q6HPRN PRN moderate pain 02/19/25
325 mg tablet
metoprolol succinate 25 mg 25 mg PO DAILY Heart 02/19/25
tablet,extended release 24 hr Disease/Condition
omeprazole 40 mg capsule,delayed 40 mg PO DAILY Gastrointestinal 02/19/25
release Issue
pentoxifylline 400 mg 400 mg PO BID Lung/Breathing Issues 02/19/25
tablet,extended release
temazepam 15 mg capsule 15 mg PO HS PRN insomnia 02/19/25
vitamins A,C,L-dayp-htohrv 2,148 2 tab PO BID Supplement 02/19/25
mcg-113 mg-45 mg-17.4 mg tablet
(PreserVision AREDS)
Review of Systems
-
History Source: Patient
Constitutional: Reports Fever (100.6 after admission) and Weight Loss (per chart about 18 kg since 2021 )
EENT: Reports No Symptoms
Respiratory: Reports Cough and Trouble Breathing (on admission )
Abdomen/GI: Reports Other (chronic dysphagia )
: Reports Bleeding (now improving )
Musculoskeletal: Reports No Symptoms
Skin: Reports No Symptoms
Neurological: Reports Weakness
Endocrine: Reports No Symptoms
Hematologic/Lymphatic: Reports No Symptoms
Vital Signs
Temp Pulse Resp BP Pulse Ox
97.4 F 87 16 130/84 94
02/22/25 04:37 02/22/25 07:04 02/22/25 07:04 02/22/25 06:09 02/22/25 06:00
Physical Exam
Exam
General: Well Developed, Well Nourished and No Apparent Distress
HEENT: Normocephalic and Anicteric
Respiratory: Other (decreased -- right sided chest tube in place )
Cardiac: Irregular Rhythm (with periods of rapid rate with )
GI: Soft, Non Tender and Non Distended
Musculoskeletal: No Clubbing and No Cyanosis
Skin: Warm and Dry
Neuro: Awake, Alert, AO x 3 and Other (thick speech with hx prior tongue CA)
Psych: Calm
Results
WBC 7.4 10^3/uL (4.8-10.8) 02/22/25 03:40
Hgb 11.4 g/dL (13.0-18.0) L 02/22/25 03:40
Hct 34.6 % (39.0-52.0) L 02/22/25 03:40
MCV 85.6 fL (80.0-94.0) 02/22/25 03:40
Plt Count 180 10^3/uL (130-400) 02/22/25 03:40
Absolute Neuts (auto) 5.6 10^3/uL (1.4-6.5) 02/21/25 05:02
PT 26.9 Sec (11.4-14.6) H 02/19/25 15:30
INR 2.49 02/19/25 15:30
APTT 42.8 Sec (23.4-35.0) H 02/19/25 15:30
Sodium 148 mmol/L (135-145) H 02/22/25 03:40
Potassium 3.9 mmol/L (3.5-5.1) 02/22/25 03:40
Chloride 106 mmol/L (98-107) 02/22/25 03:40
Carbon Dioxide 26 mmol/L (22-30) 02/22/25 03:40
BUN 35 mg/dl (9-20) H 02/22/25 03:40
Creatinine 1.1 mg/dL (0.7-1.3) 02/22/25 03:40
Calcium 10.0 mg/dl (8.4-10.2) 02/22/25 03:40
Total Bilirubin 0.9 mg/dl (0.2-1.3) 02/21/25 05:02
AST 19 U/L (17-59) 02/21/25 05:02
ALT 11 U/L (0-50) 02/21/25 05:02
Alkaline Phosphatase 89 U/L (38-126) 02/21/25 05:02
Diagnostic Image Results:
02/22/25 CXR pending
02/21/25 CXR
1. SMALL RIGHT HYDROPNEUMOTHORAX which does not appear to have increased in size with the right chest tube clamped.
2. Severe right lower and middle lobe pneumonia which appears unchanged.
3. Moderate pneumonia in the lingula which appears unchanged.
4. Mildly decreased bilateral lung volumes.
5. Inflammatory spondyloarthropathy.
Prior GI Procedures:
EGD: none
Colonoscopy: in past per patient recall as normal
Assessment / Plan
-
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
anemia, PAD with admission 02/19 with cough and chills with concern for b/l PNA with right sided pneumothorax and left sided pleural effusion with placement of chest tube. He was also noted with afib with RVR with cardiology evaluation and
hematuria during admission. He was seen by speech therapy with noted VSE in October with silent aspiration with all trials and decided to eat/drink despite recommendations. He was recommended non oral diet. He did review with medical team for
hospice vs consider peg and has opted for peg. He has declined DHT for temporary feeding per nursing staff.
-dysphagia with failed VSE
-distant hx tongue Ca with resection and prior radiation
-wt loss
-hypoalbuminemia
-concern for aspiration with right sided pneumothorax and left sided pleural effusion with placement of chest tube on admission
-afib with RVR- new Eliquis prior to admission
-hematuria
-hypernatremia
other med problems:
-CAD
-HTN
-hypothyroidism
-NIDDM
-
-hx carotid occlusion and stenosis
-anemia
-PAD
PLAN:
etiology of dysphagia with concern for progressive issue with distant hx prior tongue CA and radiation with noted aspiration PNA on admission
reviewed with patient for peg-- he is agreeable but would like to further review when family present later today
still with chest tube in place for possible removal today
pt currently off anticoagulation ( only on low dose SQ Lovenox -- was on high dose til 02/21 AM)
INR 2.49 on 02/19 will repeat in AM -- may have been from recent Eliquis use
cont NPO-- pt has declined temp DHT
cont abx
when optimized from resp and cardiac standpoint consider peg possible AM pending medical status
-
-
Thank you for consultation and allowing me to participate in the patient's care. Please call the cloud operations engineer GI physician during the after hours with any questions or concerns.
--- NOTE | 2025-02-22 07:37 | W.PN.PUL3 ---
Today's Communication / Plan
-
- Discontinue chest tube
- Continue Unasyn
- CXR in AM
Assessment
-
Patient is a 89-year-old male non-smoker with a past medical history of DM type II, hypertension, hyperlipidemia, tongue cancer s/p XRT, A-fib on Eliquis, aortic stenosis, RBBB and left carotid artery stenosis who presented with fevers, chills and
cough. cough. Patient noted to have a temperature of 101.5 �F at home. He reportedly has a history of aspiration pneumonia. Per the , he is chronically ill with limited mobility, using a walker to transfer. He has had significant weight loss
recently and reduced oral intake due to history of dysphagia/aspiration. He has a history of head neck cancer resected about 30 years ago, treated with radiation. Never had a feeding tube. Initially in the ER he was febrile to 100.6 �F, pulse
rate 140 (A-fib with RVR), tachypneic to 26 breaths/min, BP 162/102 and saturating 93% on room air. Initial labs showed leukocytosis to 12.2, Hb 13.2, INR 2.49, urinalysis negative for UTI, and COVID-19 antigen negative. Flu A/B swab was negative
and blood cultures collected. CXR showed a right-sided hydropneumothorax with moderate right-sided pleural effusion and bilateral pulmonary opacities concerning for pneumonia. Given his rapid A-fib, initially given Cardizem 10 mg and then started
on Cardizem drip, given DuoNebs, Tylenol, Unasyn and 1 L NS 0.9%. IR was consulted and they inserted a 14 [place] Thal-Quick chest tube into the right hemithorax with removal of clear serous fluid. Given the patient's rapid A-fib with blood
pressure dropping from the 160s to the 100s, he was admitted to the ICU for closer monitoring and [facility] [employer] [employer] services was consulted for additional management/recommendations
Chronic conditions [place] [employer]: DM type II, hypertension, hyperlipidemia, rosacea, history of tongue cancer s/p resection + XRT, macular degeneration, A-fib on Eliquis, left carotid artery stenosis, aortic stenosis, history of RBBB, history of dysphagia +
aspiration, [place]
Assessment and plan:
#1. Acute hypoxic respiratory failure with multifocal pneumonia, suspect aspiration.
-Continue IV Unasyn, follow-up on culture and sensitivities. Influenza A, B-. Legionella and strep pneumo urine antigen negative. Blood cultures negative so far
-Considering extent of pneumonia and parapneumonic effusion. will favor 2 weeks of antibiotics. May change to Augmentin once GI access established
-Patient has known history of aspiration is at high risk of pneumonia in the setting of oral feeding
-On Room air now
#2. Right-sided hydropneumothorax s/p chest tube. Exudative, ?Parapneumonic effusion versus empyema. With prior history of malignancy, malignant etiologies are also in differential.
- Pleural fluid studies suggestive of exudate, cytology pending, cultures negative so far
- Tolerated chest tube clamping well since yesterday. CXR this AM unchanged, d/c chest tube 02/22
#3. A-fib with RVR. Heart rate in low 100s, hemodynamically stable.
-Continue Lopressor at 5 mg IV Q6
-Eliquis once able to take PO
-Continue telemetry
#4. 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
- Discontinued Ringer lactate infusion, started diuresis (02/20)
- Elevated PASP noted, however patient in fluid overload during the study. 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 Diurese as tolerated.
- Lasix 20 mg IV daily
#5. History of tongue cancer s/p resection + XRT, also h/o dysphagia + aspiration
-Currently n.p.o., on prior imaging, trachea noted to be deviated to left. Oral feeding not safe with very high risk of aspiration
-Primary team and palliative care discussing with the patient regarding feeding tube versus more comfort focused approach/hospice. Currently plan is for feeding tube placement. Feeding tube may not eliminate aspiration risk completely.
Total time spent on this consultation/encounter _45___ minutes which includes review of history, physical exam, medications, laboratory data, personal review of imaging, extensive review of outpatient records, discussion with care team and
respiratory therapy.
Data:
CT Chest 01/2025: 1. Small right hydropneumothorax with a chest tube in place.
2. Trace left pleural effusion.
3. Multifocal pneumonia in both lungs, most confluent in the right lower lobe.
4. Severe coronary artery calcifications.
ECHO 01/2025: Small left ventricular size with normal systolic function. LVEF 55-60%.
Mildly dilated right ventricle with normal systolic function.
Paradoxical low-flow low gradient aortic stenosis (14/8 mmHg, ERMA 1.1 cm2, DVI 0.35).
Mild aortic regurgitation.
Moderate tricuspid regurgitation. PASP 53 mmHg.
Compared to prior echocardiogram in November 2024, aortic valve gradients are
stable. PASP has increased from 35-40 mmHg to 53 mmHg.
Subjective Data
-
Date of Service:
Date of Service: February 22, 2025
Subjective:
Patient comfortably lying in bed, no acute distress. Saturating 95% on room air
Review of Systems
Genitourinary: Other (All 14 systems reviewed and negative except as stated above in the history of present illness.)
Objective Data
Data Reviewed
Vital Signs / I&O / Oxygen:
Vital Signs
Temp Pulse Resp BP Pulse Ox
97.4 F 87 16 130/84 94
02/22/25 04:37 02/22/25 07:04 02/22/25 07:04 02/22/25 06:09 02/22/25 06:00
Intake and Output
02/21/25 02/22/25 02/23/25
06:59 06:59 06:59
Intake Total 780 / 780 240 / 240
Output Total 3180 / 3180 1275 / 1275
Balance -2400 / -2400 -1035 / -1035
SaO2 94
Nasal Cannula flow liters per 1.5
minute
Physical Exam
General: Comfortable
HEENT: Normocephalic
Cardiovascular: S1-S2 and Peripheral Edema (Trace pedal edema, improving)
Respiratory: Clear, Non-Labored Respirations and Other (Decreased air entry on the right side, improving)
GI: Soft and Non Distended
Neurology: Awake and Alert
Skin: Warm
Labs/Micro/Reports
Lab Data
02/22/25 03:40
02/22/25 03:40
Microbiology
02/19/25 09:31 Blood/Venous Blood Culture - Preliminary
No Growth in 48 hours- Final report to follow
02/19/25 11:27 Pleural Fluid Body Fluid Culture - Preliminary
No Growth After 48 Hours
02/19/25 11:27 Pleural Fluid Gram Stain - Preliminary
02/19/25 07:44 Blood/Venous Blood Culture - Preliminary
No Growth in 48 hours- Final report to follow
02/19/25 00:00 Urine Legionella Urinary Antigen - Final
Negative for Legionella pneumophila Serogroup 1 antigen.
A negative result does not rule out the possiblity of
Legionella infection due to other serogroups or species of
Legionella. Clinical correlation is recommended.
02/19/25 00:00 Urine Streptococcus pneumoniae Antigen (M - Final
Negative for Streptococcus pneumoniae antigen.
A negative result does not exclude infection with
Streptococcus pneumoniae. Clinical correlation is
recommended.
02/19/25 07:40 Nasal Swab Influenza Types A & B (AUBREY) - Final
Negative for Influenza A & B, NAAT
Negative results must be combined with clinical observations
and patient history.
Nucleic Acid Amplification test (NAAT)performed on the
[employer] platform.
[2025-02-22] MEDS: LASIX 20 MG IV (08:23)
--- NOTE | 2025-02-22 09:15 | PN.IRAD.UPD ---
Update Note - IRAD
- -
Right chest tube removed at bedside. New ,dry, clean dressing placed over site. Patient tolerated procedure well.
[2025-02-22 12:00] LABS: Glucose - Point of Care 155 mg/dl (70-99)
[2025-02-22 12:35] LABS: Magnesium 1.9 mg/dl (1.6-2.3)
--- NOTE | 2025-02-22 12:47 | PTCARENOTE ---
went in room to give pt requested ice chip. while giving pt ice chip, overheard daughter stating under her breath that 'he is not gonna choke on an ice chip whatever we just need to get him home.' family aware of downgrade to tele. pt without
complaint at this time
--- NOTE | 2025-02-22 13:51 | W.PN.HOSP.TC ---
Addendum entered and electronically signed by Nyla Tillman MD 02/22/25 15:52:
I saw and evaluated the patient independently. I reviewed the resident�s note and agree with findings and plan as documented by Dr. Ruiz.
GENERAL: well developed, well nourished, male in no apparent distress
HEENT: NC/AT--left neck s/p surgical resection with firm tight skin c/w radiation
HEART: irreg irreg, +S1, +S2, periods of tachycardia
LUNGS : decreased BS bilaterally--chest tube right lung field removed
ABDOM: soft, nontender, nondistended, + bowel sounds
EXT: no cyanosis, clubbing, or edema
NEUROLOGIC: grossly intact
Sepsis due to bilateral pneumonia with right hydropneumothorax--s/p chest tube with 2.1L fluid removed--CXR post chest tube clamping OK and chest tube removed --apprec pulm--CT scan shows multifocal pneumonia in both lungs, trace left pleural
effusion, small right hydropneumothorax with chest tube in place--blood cultures neg--influenza A, B, Legionella, strep pneumo urine antigen are all negative--cont unasyn--follow CXR- Continue incentive spirometer, DuoNebs
Persistent Atrial fibrillation with RVR-- Patient is rate controlled and hemodynamically stable- Patient is on Eliquis for anticoagulation but that is on hold--changed to DVT proph lovenox dose-- Continue Lopressor IV and keep heart rate less than
110- Repeat echocardiogram shows left ventricular ejection fraction of 55 to 60%
hematuria--likely due to lovenox--change to DVT prophylaxis dosing
Heart failure with preserved ejection fraction--no acute exacerbation- Most recent shows left ventricular ejection fraction of 55 to 60%- Monitor ins and outs, fluid restriction, sodium restriction- Keep potassium > 4 and magnesium> 2
History of aspiration pneumonia and dysphagia-- Speech therapy recommends strict n.p.o., meds via nonoral means, oral care, LOAD OUT WORKER-- Discussed with family regarding feeding tube versus hospice--family leaning towards hospice 02/20 but 02/21 wants PEG
tube--GI consulted, possible PEG tube placement tomorrow 02/23--met with and pt (pt again asking to eat despite multiple conversations why he cannot)--of note, speech and MACHINE HEEL SPRAYER both document that pt would not and does not want feeding
tube--family convinced him to have PEG tube placed--GI CASINO BEVERAGE SERVER did meet with family and 5 minutes before myself and CM spoke with family--pt and spouse indicate that they did not see GI.....
DVT proph--Lovenox
Full code
Original Note:
Today's Communication/Plan
-
- f/u GI on peg tube, hold Lovenox tonight
- Labs in AM
- Monitor on tele
Assessment / Plan
Assessment / Plan
Sepsis due to bilateral pneumonia with right hydropneumothorax:
- Latest chest x-ray on 02/22/2025 shows slightly increased size of small right hydropneumothorax, bibasilar airspace opacities consistent with pneumonia on the right side
-Patient's chest tube was removed today because of stable respiratory status, no significant reaccumulation on imaging, draining less than 150 mL a day
- Pleural fluid culture is negative, blood cultures are negative, influenza A, B, Legionella, strep pneumo urine antigen are all negative
- Pleural fluid analysis shows a protein ratio more than .6 indicating a exudative effusion, cytology pending. Differential is empyema vs parapneumonic effusion vs malignancy
- Continue incentive spirometer to help improve lung expansion and oxygenation. DuoNebs to help reduce chronic airway inflammation.
- Continue Unasyn as patient's x-ray still shows pneumonia. Continue antibiotics for 14 days then transition to Augmentin on discharge as per pulmonary recommendations.
- PT/OT are following and recommend skilled rehab 1 to 2 hours a day
Paroxysmal Atrial fibrillation with RVR:
- No dizziness, chest palpitations, syncope, weakness.
- Patient is rate controlled and hemodynamically stable
- Patient's Lovenox is held tonight as he is undergoing procedure tomorrow to place a PEG tube to reduce perioperative bleeding risk, will resume postprocedure.
- Continue Lopressor IV and keep heart rate less than 110
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
- Repeat echocardiogram shows left ventricular ejection fraction of 55 to 60%
- Cardiology saw patient and recommended changing switching anticoagulation back to Eliquis when patient is able to take PO
Hematuria:
- Therapeutic dose of Lovenox was changed to renal dosage of Lovenox which is 40 qpm as patient was having hematuria.
Heart failure with preserved ejection fraction:
- Most recent shows left ventricular ejection fraction of 55 to 60%
- IV Lasix 40 Mg was given once
- Monitor ins and outs, fluid restriction, sodium restriction
- Keep potassium > 4 and magnesium> 2
History of aspiration pneumonia and dysphagia:
- Speech therapy recommends strict n.p.o., meds via nonoral means, oral care, LOAD OUT WORKER
- Discussed with family regarding feeding tube versus hospice and family would like to have feeding tube
- GI will place feeding tube tomorrow morning, patient is to be kept n.p.o., Lovenox is to be held tonight.
DVT prophylaxis
Full code
Anticipated Discharge: 24 - 48 hours
Subjective/Interval History
-
Date of Service: February 22, 2025
Patient wants to have feeding tube placed.
Objective Data
-
Labs:
Laboratory Results
02/22/25
03:40
WBC 7.4
Hgb 11.4 L
Hct 34.6 L
Plt Count 180
Sodium 148 H
Potassium 3.9
Chloride 106
Carbon Dioxide 26
BUN 35 H
Creatinine 1.1
Glucose 162 H
Calcium 10.0
Vital Signs:
Vital Signs
Temp Pulse Resp BP Pulse Ox
97.5 F 104 27 145/94 96
02/22/25 11:00 02/22/25 11:56 02/22/25 08:00 02/22/25 11:56 02/22/25 08:00
I&O
02/21/25 02/22/25 02/23/25
06:59 06:59 06:59
Intake Total 780 / 780 240 / 240 120 / 120
Output Total 3180 / 3180 1275 / 1275 625 / 625
Balance -2400 / -2400 -1035 / -1035 -505 / -505
Review of Systems
-
History Source: Patient
All other systems: Reviewed and negative
Physical Exam
-
General: Appears Chronically Ill
HEENT: Normocephalic and Atraumatic
Respiratory: Rhonchi (Bilaterally) and Chest Tubes (Right-sided chest tube)
Cardiac: S1/S2 and Irregular Rhythm
GI: Soft, Nontender, Nondistended and Normal Bowel Sounds
Genito-urinary: No Costovertebral Tender
Musculoskeletal: No Clubbing, No Cyanosis and No Edema
Neuro: AO x 3
Hematologic / Lymphatic: No Lymphadenopathy
Psych: Calm
Data Reviewed
-
Labs: Labs Reviewed by me and Discussed with Physician
--- NOTE | 2025-02-22 14:46 | CHAP ---
Entry Level Automotive Technician request relayed to on-call infectious disease physician, Monsignor Andres, to provide Sacrament of the Sick. Awaiting call back.
--- NOTE | 2025-02-22 15:11 | PTCARENOTE ---
report called to Mirian who will assume care of pt upon transfer. room still needs to be cleaned no questions at this time.
--- NOTE | 2025-02-22 15:36 | CM ---
Patient seen with physicians and patient . Patient for peg tube tomorrow per physician but asking for food. Patient plan following Peg is for home with VN. CM will continue to reassess functional status needs following procedure planned for
tomorrow. Patient may benefit from home health aides in addition to family supports pending functional status closer to discharge. CM will continue to follow for discharge planning needs.
Plan; home with VN; following peg tube pending functional assessments vs SNF.
--- NOTE | 2025-02-22 17:05 | PTCARENOTE ---
was present at bedside for pt to receive blessing and communion
--- NOTE | 2025-02-22 17:33 | PTCARENOTE ---
Daughter Mihaela called and made aware of new room, was present with daughter.
--- NOTE | 2025-02-22 17:35 | PTCARENOTE ---
Received pt from ICU via bed. AOOx3. Assessed and oriented to room. No complaints of pain. Telemetry placed. VSS. Call brower within close reach.
--- NOTE | 2025-02-22 18:00 | CHAP ---
Msgr. Wilmer Andres of [facility] in [place] anointed Mr. Briscoe and gave him Holy Communion with the nurse's assistance. Exact time uncertain.
[2025-02-22 19:35] LABS: Glucose - Point of Care 143 mg/dl (70-99)
[2025-02-22] MEDS: NOVOLOG FLEXPEN-LOW RESISTANCE SC (19:37)
[2025-02-22 21:34] LABS: Glucose - Point of Care 151 mg/dl (70-99)
[2025-02-23] VITALS (10 sets, daily range): BP systolic 150–166; BP diastolic 87–105; PULSE 91; O2SAT 97
[2025-02-23 00:14] LABS: Glucose - Point of Care 151 mg/dl (70-99)
[2025-02-23] MEDS: NOVOLOG FLEXPEN-LOW RESISTANCE 1 UNITS SC ×2 (00:20→18:16)
[2025-02-23] MEDS: UNASYN IV ×4 (03:35→21:53)
[2025-02-23] MEDS: LOPRESSOR 5 MG IV ×3 (05:28→18:15)
[2025-02-23 06:18] LABS: Glucose - Point of Care 146 mg/dl (70-99)
[2025-02-23] MEDS: NOVOLOG FLEXPEN-LOW RESISTANCE SC ×2 (06:22→11:39)
--- NOTE | 2025-02-23 06:53 | W.PN.HOSP.TC ---
Addendum entered and electronically signed by Nyla Tillman MD 02/23/25 14:31:
chronic heart failure with preserved EF--despite elevated proBNP, I do not believe the patient examines as acute heart failure--in fact, patient's sodium went up with IV Lasix treatments
Addendum entered and electronically signed by Nyla Tillman MD 02/23/25 14:26:
I saw and evaluated the patient independently. I reviewed the resident�s note and agree with findings and plan as documented by Dr. Ruiz.
GENERAL: well developed, well nourished, male in no apparent distress
HEENT: NC/AT--left neck s/p surgical resection with firm tight skin c/w radiation
HEART: irreg irreg, +S1, +S2, periods of tachycardia
LUNGS : decreased BS bilaterally--chest tube right lung field removed
ABDOM: soft, nontender, nondistended, + bowel sounds
EXT: no cyanosis, clubbing, or edema
NEUROLOGIC: grossly intact
Sepsis due to bilateral pneumonia with right hydropneumothorax--s/p chest tube with 2.1L fluid removed--CXR post chest tube clamping OK and chest tube removed --apprec pulm--CT scan shows multifocal pneumonia in both lungs, trace left pleural
effusion, small right hydropneumothorax with chest tube in place--blood cultures neg--influenza A, B, Legionella, strep pneumo urine antigen are all negative--cont unasyn--follow CXR--Continue incentive spirometer, DuoNebs
Persistent Atrial fibrillation with RVR-- Patient is rate controlled and hemodynamically stable--Patient is on Eliquis for anticoagulation but that is on hold--changed to DVT proph lovenox dose-- Continue Lopressor IV and keep heart rate less than
110- Repeat echocardiogram shows left ventricular ejection fraction of 55 to 60%
hypernatremia--starting IVF, D5W
hematuria--likely due to lovenox--change to DVT prophylaxis dosing
Heart failure with preserved ejection fraction--no acute exacerbation- Most recent shows left ventricular ejection fraction of 55 to 60%- Monitor ins and outs, fluid restriction, sodium restriction- Keep potassium > 4 and magnesium> 2
History of aspiration pneumonia and dysphagia-- Speech therapy recommends strict n.p.o., meds via nonoral means, oral care, LEATHER WORKER-- Discussed with family regarding feeding tube versus hospice--family wasw leaning towards hospice 02/20 but 02/21 wanted
PEG tube--GI consulted, await PEG placement--INR elevated due to Eliquis (which has been on hold)--FFP being given--possible PEG tube placement tomorrow 02/24---of note, speech and DOLLY OPERATOR both document that pt would not and does not want feeding
tube--family convinced him to have PEG tube placed
DVT proph--Lovenox
Full code
Original Note:
Today's Communication/Plan
-
- F/u patient post PEG tube
Assessment / Plan
Assessment / Plan
Sepsis due to bilateral pneumonia with right hydropneumothorax:
- Latest chest x-ray on 02/22/2025 shows slightly increased size of small right hydropneumothorax, bibasilar airspace opacities consistent with pneumonia on the right side
-Patient's chest tube was removed 02/22/25because of stable respiratory status, no significant reaccumulation on imaging, draining less than 150 mL a day
- Pleural fluid culture is negative, blood cultures are negative, influenza A, B, Legionella, strep pneumo urine antigen are all negative
- Pleural fluid analysis shows a protein ratio more than .6 indicating a exudative effusion, cytology pending. Differential is empyema vs parapneumonic effusion vs malignancy
- Continue incentive spirometer to help improve lung expansion and oxygenation. DuoNebs to help reduce chronic airway inflammation.
- Continue Unasyn as patient's x-ray still shows pneumonia. Continue antibiotics for 14 days then transition to Augmentin on discharge as per pulmonary recommendations.
- PT/OT are following and recommend skilled rehab 1 to 2 hours a day
Paroxysmal Atrial fibrillation with RVR:
- No dizziness, chest palpitations, syncope, weakness.
- Patient is rate controlled and hemodynamically stable
- Patient's Lovenox is held as he is undergoing procedure to place a PEG tube to reduce perioperative bleeding risk, will resume postprocedure.
- Continue Lopressor IV and keep heart rate less than 110
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
- Repeat echocardiogram shows left ventricular ejection fraction of 55 to 60%
- Cardiology saw patient and recommended changing switching anticoagulation back to Eliquis when patient is able to take PO
Acute moderate Hypernatremia:
- sodium level is 151
- No dry mucous membranes, lethargy, confusion, seizures
- Suspect due to a combination of diuretics and NPO for procedure. Continue to observe sodium.
Hematuria:
- Therapeutic dose of Lovenox was changed to renal dosage of Lovenox which is 40 qpm as patient was having hematuria and being held before PEG tube
Heart failure with preserved ejection fraction:
- Most recent shows left ventricular ejection fraction of 55 to 60%
- IV Lasix 20 mg daily
- Monitor ins and outs, fluid restriction, sodium restriction
- Keep potassium > 4 and magnesium> 2
History of aspiration pneumonia and dysphagia:
- Speech therapy recommends strict n.p.o., meds via nonoral means, oral care, LEATHER WORKER
- Discussed with family regarding feeding tube versus hospice and family would like to have feeding tube
- GI will place feeding tube today morning, patient is to be kept n.p.o., Lovenox is to be held
DVT prophylaxis
Full code
Anticipated Discharge: 24 - 48 hours
Subjective/Interval History
-
Date of Service: February 23, 2025
Patient has no acute complaints today.
He is NPO and is going to have a feeding tube placed today morning.
Objective Data
-
Labs:
Laboratory Results
02/23/25
06:00
WBC Pending
Hgb Pending
Hct Pending
Plt Count Pending
PT Pending
INR Pending
Sodium Pending
Potassium Pending
Chloride Pending
Carbon Dioxide Pending
BUN Pending
Creatinine Pending
Glucose Pending
Calcium Pending
Vital Signs:
Vital Signs
Temp Pulse Resp BP Pulse Ox
98.4 F 105 16 158/100 99
02/23/25 03:56 02/23/25 05:28 02/23/25 03:56 02/23/25 05:28 02/23/25 03:56
I&O
02/21/25 02/22/25 02/23/25
06:59 06:59 06:59
Intake Total 780 / 780 240 / 240 240 / 240
Output Total 3180 / 3180 1275 / 1275 900 / 900
Balance -2400 / -2400 -1035 / -1035 -660 / -660
Review of Systems
-
History Source: Patient
All other systems: Reviewed and negative
Physical Exam
-
General: Appears Chronically Ill
HEENT: Normocephalic and Atraumatic
Respiratory: Rhonchi (Bilaterally)
Cardiac: S1/S2 and Irregular Rhythm
GI: Soft, Nontender, Nondistended and Normal Bowel Sounds
Genito-urinary: No Costovertebral Tender
Musculoskeletal: No Clubbing, No Cyanosis and No Edema
Neuro: AO x 3
Hematologic / Lymphatic: No Lymphadenopathy
Psych: Calm
Data Reviewed
-
Labs: Labs Reviewed by me and Discussed with Physician
[2025-02-23] MEDS: DUONEB 3 ML INH ×2 (07:21→19:30)
[2025-02-23] MEDS: SODIUM CHLORIDE 3% FOR INHALATION 1 VIAL INH ×2 (07:21→19:30)
[2025-02-23 07:31] LABS: Glucose - Point of Care 143 mg/dl (70-99)
[2025-02-23 07:35] LABS: Hematocrit 40.3 % (39.0-52.0); Hemoglobin 13.2 g/dL (13.0-18.0); Mean Corp Hgb Conc. 32.8 g/dL (33.0-37.0); Mean Corpuscular Hgb 28.5 pg (27.0-31.0); Mean Platelet Volume 10.5 fL (7.4-10.4); Platelet Count 197 10^3/uL (130-400); Red Blood Cell Count 4.63 10^6/uL (4.70-6.10); Red Cell Dist. Width 15.3 % (11.5-14.5); White Blood Cell Count 7.5 10^3/uL (4.8-10.8)
[2025-02-23 07:51] LABS: INR 2.54; PT 27.7 Sec (11.4-14.6)
[2025-02-23] MEDS: LASIX 20 MG IV (07:51)
[2025-02-23 08:02] LABS: Blood Urea Nitrogen 29 mg/dl (9-20); Calcium 10.5 mg/dl (8.4-10.2); Carbon Dioxide 34 mmol/L (22-30); Chloride 105 mmol/L (98-107); Estimated Creatinine Clearance 48 ml/min; Glucose 159 mg/dl (70-99); Potassium 3.6 mmol/L (3.5-5.1); Sodium 151 mmol/L (135-145); eGFR > 60.00
--- NOTE | 2025-02-23 09:06 | W.PN.PUL3 ---
Today's Communication / Plan
-
For PEG today, reviewed risks of continued aspiration and PO intake with family at bedside
Transition IV abx to PO once able to gain access
Chest tube discontinued 02/22, repeat imaging on as needed basis
Encourage otherwise OOB, PT/ambulation
Discussed plan of care with care team
Assessment
-
Patient is a 89-year-old male non-smoker with a past medical history of DM type II, hypertension, hyperlipidemia, tongue cancer s/p XRT, A-fib on Eliquis, aortic stenosis, RBBB and left carotid artery stenosis who presented with fevers, chills and
cough. cough. Patient noted to have a temperature of 101.5 �F at home. He reportedly has a history of aspiration pneumonia. Per the , he is chronically ill with limited mobility, using a walker to transfer. He has had significant weight loss
recently and reduced oral intake due to history of dysphagia/aspiration. He has a history of head neck cancer resected about 30 years ago, treated with radiation. Never had a feeding tube. Initially in the ER he was febrile to 100.6 �F, pulse
rate 140 (A-fib with RVR), tachypneic to 26 breaths/min, BP 162/102 and saturating 93% on room air. Initial labs showed leukocytosis to 12.2, Hb 13.2, INR 2.49, urinalysis negative for UTI, and COVID-19 antigen negative. Flu A/B swab was negative
and blood cultures collected. CXR showed a right-sided hydropneumothorax with moderate right-sided pleural effusion and bilateral pulmonary opacities concerning for pneumonia. Given his rapid A-fib, initially given Cardizem 10 mg and then started
on Cardizem drip, given DuoNebs, Tylenol, Unasyn and 1 L NS 0.9%. IR was consulted and they inserted a 14 Vincentian Thal-Quick chest tube into the right hemithorax with removal of clear serous fluid. Given the patient's rapid A-fib with blood
pressure dropping from the 160s to the 100s, he was admitted to the ICU for closer monitoring and Block Trader services was consulted for additional management/recommendations
Acute hypoxic respiratory failure with multifocal pneumonia, suspect aspiration.
Right-sided hydropneumothorax s/p chest tube.
A-fib with RVR.
Acute on chronic HFpEF
Severe dysphagia, failed VSE
Hypernatremia
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
DM type II
hypertension
hyperlipidemia
rosacea
history of tongue cancer s/p resection + XRT--history of dysphagia + aspiration
macular degeneration
A-fib on Eliquis
left carotid artery stenosis
aortic stenosis
history of RBBB
Plan
Stable on RA, no respiratory complaints
Continue IV Unasyn, for aspiration--change IV to PO course pending PEG placement
Cultures thus far negative--Influenza A, B neg.
Legionella and strep pneumo urine antigen negative.
Blood cultures negative so far
Given extent of pneumonia and parapneumonic effusion, recommend 10-14 days of antibiotics.
May change to Augmentin once GI access established
Patient has known history of aspiration is at high risk of pneumonia in the setting of oral feeding
Effusion studies suggestive of Exudative, likely Parapneumonic effusion. With prior history of malignancy, malignant etiologies are also in differential.
Pleural fluid studies suggestive of exudate, cytology negative, cultures negative so far
Tolerated chest tube clamping well -- CXR unchanged, d/c'ed chest tube 02/22
Afib-- Heart rate in low 100s, hemodynamically stable.
Continue Lopressor at 5 mg IV Q6
Eliquis once able to take PO
Continue telemetry
CHF history with Pulmonary Hypertension (PASP 53 mm)
Significantly elevated proBNP level, pedal edema on exam.
Discontinued Ringer lactate infusion, started diuresis (02/20)
Elevated PASP noted, however patient in fluid overload during the study. 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 Diurese as tolerated.
Lasix 20 mg IV daily
History of tongue cancer s/p resection + XRT, also h/o dysphagia + aspiration
-Currently n.p.o., on prior imaging, trachea noted to be deviated to left. Oral feeding not safe with very high risk of aspiration
I reviewed strict NPO status today with family moving forward today, they seemed surprised that he could not eat by mouth
Primary team and palliative care discussing with the patient regarding feeding tube versus more comfort focused approach/hospice.
Currently plan is for feeding tube placement. Feeding tube may not eliminate aspiration risk completely.
Prior discussions are reviewed
Data:
CT Chest 01/2025: 1. Small right hydropneumothorax with a chest tube in place.
2. Trace left pleural effusion.
3. Multifocal pneumonia in both lungs, most confluent in the right lower lobe.
4. Severe coronary artery calcifications.
ECHO 01/2025: Small left ventricular size with normal systolic function. LVEF 55-60%. Mildly dilated right ventricle with normal systolic function. Paradoxical low-flow low gradient aortic stenosis (14/8 mmHg, ERMA 1.1 cm2, DVI 0.35). Mild aortic
regurgitation. Moderate tricuspid regurgitation. PASP 53 mmHg. Compared to prior echocardiogram in November 2024, aortic valve gradients are stable. PASP has increased from 35-40 mmHg to 53 mmHg.
-----
Total time spent on this encounter __51__ minutes which includes review of history, physical exam, medications, laboratory data, personal review of imaging, extensive review of outpatient records, discussion with care team and respiratory therapy.
Subjective Data
-
Date of Service:
Date of Service: February 23, 2025
Chief Complaint: Pulmonary Follow Up
Subjective:
No changes today, stable on RA
Family at bedside
Objective Data
Data Reviewed
Vital Signs / I&O / Oxygen:
Vital Signs
Temp Pulse Resp BP Pulse Ox
97.5 F 89 18 150/97 96
02/23/25 07:19 02/23/25 07:23 02/23/25 07:23 02/23/25 07:19 02/23/25 07:23
Intake and Output
02/22/25 02/23/25 02/24/25
06:59 06:59 06:59
Intake Total 240 / 240 240 / 240
Output Total 1275 / 1275 900 / 900
Balance -1035 / -1035 -660 / -660
SaO2 96
Nasal Cannula flow liters per 1.5
minute
Physical Exam
General: Comfortable and Other (NAD, NPO)
HEENT: Normocephalic, Anicteric and Moist Mucous Membranes
Cardiovascular: S1-S2, Regular Rhythm and Peripheral Edema (Trace pedal edema, improving)
Respiratory: Clear, Non-Labored Respirations and Other (Decreased air entry on the right side, improving)
GI: Soft, Non Distended and Non Tender
Neurology: Awake, Alert, Oriented and No Motor Deficits
Skin: Warm and Dry
Labs/Micro/Reports
Lab Data
02/23/25 06:53
02/23/25 06:53
Laboratory Results
02/23/25
06:53
PT 27.7 H
INR 2.54
Microbiology
02/19/25 07:44 Blood/Venous Blood Culture - Preliminary
No Growth in 4 days- Final report to follow
02/19/25 11:27 Pleural Fluid Body Fluid Culture - Final
No Growth After 72 Hours
02/19/25 11:27 Pleural Fluid Gram Stain - Final
02/19/25 09:31 Blood/Venous Blood Culture - Preliminary
No Growth in 72 hours- Final report to follow
02/19/25 00:00 Urine Legionella Urinary Antigen - Final
Negative for Legionella pneumophila Serogroup 1 antigen.
A negative result does not rule out the possiblity of
Legionella infection due to other serogroups or species of
Legionella. Clinical correlation is recommended.
02/19/25 00:00 Urine Streptococcus pneumoniae Antigen (M - Final
Negative for Streptococcus pneumoniae antigen.
A negative result does not exclude infection with
Streptococcus pneumoniae. Clinical correlation is
recommended.
[2025-02-23 10:41] LABS: Glucose - Point of Care 147 mg/dl (70-99)
--- NOTE | 2025-02-23 11:53 | PN.CDI ---
CDI
- -
CDI:
Physician Documentation Request
Admit Date: 02/19/25 10:38
Dear Doctor,
Please review the following and provide your response in the progress notes.
Clinical Indicators:
- 02/22 Pulmonary 'Acute on chronic HFpEF with Pulmonary Hypertension'
- 'Significantly elevated proBNP level, pedal edema on exam'
- 02/23 PN 'Heart failure with preserved ejection fraction'
- probnp [id number]
- 40 mg IV Lasix given x1
- 20 mg IV Lasix given x 3
- 15 lb weight loss from 02/19-02/22
Please clarify the potentially conflicting documentation which accurately represents the acuity of the HFpEF
Acute on chronic HFpEF
Chronic HFpEF
Other (please specify)
Use of terms such as suspected, likely, concern for, or probable (associated with a specific diagnosis that is being evaluated, monitored, or treated as if it exists) are acceptable and can be coded in the inpatient setting, when documented at the
time of discharge.
Thank you,
Dedrick Alanis RN
CDI Specialist
Please use your independent medical judgment in providing your response.
[2025-02-23] MEDS: D5W 1000 IV (12:34)
--- NOTE | 2025-02-23 14:44 | W.PN.UPDATE ---
Update Note
Progress Note Update
Brief GI Note:
EGD w/ PEG tube placement put on hold given worsening hypernatremia with Na 151 and INR 2.54 on AM labs on 02/23/25. Discussed findings with both surgery, primary internal medicine team and patient's at bedside. Consented for blood products and
advised 1 uFFP for correction of INR. Will tentatively plan for EGD with PEG tomorrow, 02/24/25, as long as Na < 150 and INR < 2.0. Remains on IV Unasyn. See previous consultation note from 02/22/25 for full details/recommendations.
Discussed with patient's this afternoon. GI will continue to follow.
--- NOTE | 2025-02-23 14:55 | CM ---
Patient seen at bedside with physician and patient son and daughter in law, daughter. Patient also in room. Physician updated patient son and daughter about plan for Peg tube today and options for home care. CM will provide tube feeding order
form to patient physician and will send referral to [facility] when needed tube feedings clarified. CM will call to [place] to determine if they are able to do teaching, CM will also reach out to [facility] to confirm ability to accept and confirm
family choice. CM will continue to follow for discharge planning needs.
Plan; home with Peg tube, [facility] for teaching, and [facility] to provide tube feedings when medically appropriate.
[2025-02-23 16:34] LABS: Glucose - Point of Care 161 mg/dl (70-99)
--- NOTE | 2025-02-23 20:36 | W.PN.UPDATE ---
Update Note
Progress Note Update
- Hold Lasix as this is contributing to his hypernatremia. Patient was supposed to get PEG tube placed, however his Na was 151 and INR 2.54. Will have to wait until Na is below 150 and INR is less than [address] PEG tube.
--- NOTE | 2025-02-23 20:39 | W.PN.UPDATE ---
Update Note
Progress Note Update
Acute on Chronic Heart failure with preserved ejection fraction and pulmonary hypertension:
- Most recent shows left ventricular ejection fraction of 55 to 60%
- HOLD IV Lasix 20 mg daily as Na level is 151, and he cant get PEG tube placed if Na is not below 150.
- Monitor ins and outs, fluid restriction, sodium restriction
- Keep potassium > 4 and magnesium> 2
--- NOTE | 2025-02-23 20:43 | W.PN.UPDATE ---
Update Note
Progress Note Update
Persistent Atrial fibrillation with RVR:
- No dizziness, chest palpitations, syncope, weakness.
- Patient is rate controlled and hemodynamically stable
- Patient's Lovenox is held as he is undergoing procedure to place a PEG tube to reduce perioperative bleeding risk, will resume postprocedure.
- Continue Lopressor IV and keep heart rate less than 110
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
- Repeat echocardiogram shows left ventricular ejection fraction of 55 to 60%
- Cardiology saw patient and recommended changing switching anticoagulation back to Eliquis when patient is able to take PO
[2025-02-24] VITALS (7 sets, daily range): BP systolic 122–165; BP diastolic 74–104; BMI 21.5
[2025-02-24 00:54] LABS: Glucose - Point of Care 129 mg/dl (70-99)
[2025-02-24] MEDS: NOVOLOG FLEXPEN-LOW RESISTANCE SC (00:57)
[2025-02-24] MEDS: LOPRESSOR 5 MG IV ×5 (00:59→23:17)
[2025-02-24] MEDS: UNASYN IV ×4 (04:39→22:35)
[2025-02-24 05:54] LABS: Glucose - Point of Care 162 mg/dl (70-99)
[2025-02-24] MEDS: DUONEB 3 ML INH ×2 (06:00→17:19)
[2025-02-24] MEDS: SODIUM CHLORIDE 3% FOR INHALATION 1 VIAL INH ×2 (06:00→17:19)
[2025-02-24] MEDS: NOVOLOG FLEXPEN-LOW RESISTANCE 1 UNITS SC ×3 (06:04→18:10)
[2025-02-24 07:26] LABS: % Basophils 0.4 % (0-2); % Eosinophils 0.6 % (0-6); % Immature Granulocytes 0.3 % (0-0.5); % Lymphocytes 20.6 % (20.5-51.1); % Neutrophils 70.1 % (42.2-75.2); Absolute Lymphocytes 1.4 10^3/uL (1.2-3.4); Absolute Monocytes 0.6 10^3/uL (0.1-0.6); Absolute Neutrophils 4.8 10^3/uL (1.4-6.5); Hematocrit 41.1 % (39.0-52.0); Hemoglobin 13.2 g/dL (13.0-18.0); Mean Corp Hgb Conc. 32.1 g/dL (33.0-37.0); Mean Corpuscular Hgb 27.9 pg (27.0-31.0); Mean Corpuscular Volume 86.9 fL (80.0-94.0); Mean Platelet Volume 10.5 fL (7.4-10.4); Nucleated Red Blood Cells % 0 % (-); Platelet Count 188 10^3/uL (130-400); Red Blood Cell Count 4.73 10^6/uL (4.70-6.10); White Blood Cell Count 6.9 10^3/uL (4.8-10.8)
[2025-02-24 07:37] LABS: INR 2.43; PT 26.9 Sec (11.4-14.6)
[2025-02-24 07:47] LABS: ALT (SGPT) 14 U/L (0-50); AST (SGOT) 20 U/L (17-59); Albumin 3.9 g/dl (3.5-5.0); Alkaline Phosphatase 88 U/L (38-126); Blood Urea Nitrogen 28 mg/dl (9-20); Calcium 10.2 mg/dl (8.4-10.2); Carbon Dioxide 36 mmol/L (22-30); Chloride 101 mmol/L (98-107); Estimated Creatinine Clearance 49 ml/min; Glucose 195 mg/dl (70-99); Sodium 149 mmol/L (135-145); Total Protein 7.1 g/dl (6.3-8.2); eGFR > 60.00
[2025-02-24] MEDS: APRESOLINE 10 MG IV (08:44)
--- NOTE | 2025-02-24 08:50 | W.PN.GI.CBS2 ---
Addendum entered and electronically signed by Dennis Hurtado MD 02/24/25 11:31:
Received update from medical team pt now hospice
gi will sign off pls call with ?s
Original Note:
Today's Communication / Plan
-
dobhoff, monitor labs, tentative peg thursday
Assessment / Plan
-
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
anemia, PAD with admission 02/19 with cough and chills with concern for b/l PNA with right sided pneumothorax and left sided pleural effusion with placement of chest tube. He was also noted with afib with RVR with cardiology evaluation and
hematuria during admission. He was seen by speech therapy with noted VSE in October with silent aspiration with all trials and decided to eat/drink despite recommendations. He was recommended non oral diet. He did review with medical team for
hospice vs consider peg and has opted for peg. He has declined DHT for temporary feeding per nursing staff.
-dysphagia with failed VSE
-distant hx tongue Ca with resection and prior radiation
-wt loss
-hypoalbuminemia
-concern for aspiration with right sided pneumothorax and left sided pleural effusion with placement of chest tube on admission
-afib with RVR- new Eliquis prior to admission
-hematuria
-hypernatremia
other med problems:
-CAD
-HTN
-hypothyroidism
-NIDDM
-
-hx carotid occlusion and stenosis
-anemia
-PAD
PLAN:
etiology of dysphagia with concern for progressive issue with distant hx prior tongue CA and radiation with noted aspiration PNA on admission
PEG continues to be on hold due to elevated INR d/w medical team and surgery team - plan tentative Thursday
Elevated INR likely multifactorial - Eliquis, malnutrition, d/w medical team t/c vit K
Pt now agreeable to Dobhoff
Updated daughter
Subjective
Subjective
Date of Service: February 24, 2025
Reviewing notes went into A fib with RVR overnight
Pt with no complaints
Objective
Data Reviewed
Laboratory Data:
Laboratory Results
02/24/25 06:58
02/24/25 06:58
Laboratory Results
PT 26.9 Sec (11.4-14.6) H 02/24/25 06:58
INR 2.43 02/24/25 06:58
APTT 42.8 Sec (23.4-35.0) H 02/19/25 15:30
Phosphorus 3.4 mg/dl (2.5-4.5) 02/20/25 05:25
Magnesium 1.9 mg/dl (1.6-2.3) 02/22/25 03:40
Total Bilirubin 1.0 mg/dl (0.2-1.3) 02/24/25 06:58
AST 20 U/L (17-59) 02/24/25 06:58
ALT 14 U/L (0-50) 02/24/25 06:58
Alkaline Phosphatase 88 U/L (38-126) 02/24/25 06:58
Vital Signs and I&O:
Vital Signs
Temp Pulse Resp BP Pulse Ox
97.8 F 77 18 165/99 96
02/24/25 07:29 02/24/25 07:29 02/24/25 07:29 02/24/25 07:29 02/24/25 07:29
I&O
02/23/25 02/24/25 02/25/25
06:59 06:59 06:59
Intake Total 240 / 240 757 / 757
Output Total 900 / 900 425 / 425
Balance -660 / -660 332 / 332
Physical Exam
Physical Exam
GI: Non Distended, Non Tender and Other (scar middle of abd)
--- NOTE | 2025-02-24 09:09 | W.PN.PUL3 ---
Today's Communication / Plan
-
PEG delayed until next week due to INR
Repeat labs today, family concerned he is declining
I discussed plan of care with primary team
Family has now decided to do hospice, prolongation of treatment is not in line with patients wishes
Agree with plan for consult
We will sign off at this time, please call with questions
Assessment
-
Patient is a 89-year-old male non-smoker with a past medical history of DM type II, hypertension, hyperlipidemia, tongue cancer s/p XRT, A-fib on Eliquis, aortic stenosis, RBBB and left carotid artery stenosis who presented with fevers, chills and
cough. cough. Patient noted to have a temperature of 101.5 �F at home. He reportedly has a history of aspiration pneumonia. Per the , he is chronically ill with limited mobility, using a walker to transfer. He has had significant weight loss
recently and reduced oral intake due to history of dysphagia/aspiration. He has a history of head neck cancer resected about 30 years ago, treated with radiation. Never had a feeding tube. Initially in the ER he was febrile to 100.6 �F, pulse
rate 140 (A-fib with RVR), tachypneic to 26 breaths/min, BP 162/102 and saturating 93% on room air. Initial labs showed leukocytosis to 12.2, Hb 13.2, INR 2.49, urinalysis negative for UTI, and COVID-19 antigen negative. Flu A/B swab was negative
and blood cultures collected. CXR showed a right-sided hydropneumothorax with moderate right-sided pleural effusion and bilateral pulmonary opacities concerning for pneumonia. Given his rapid A-fib, initially given Cardizem 10 mg and then started
on Cardizem drip, given DuoNebs, Tylenol, Unasyn and 1 L NS 0.9%. IR was consulted and they inserted a 14 [place] Thal-Quick chest tube into the right hemithorax with removal of clear serous fluid. Given the patient's rapid A-fib with blood
pressure dropping from the 160s to the 100s, he was admitted to the ICU for closer monitoring and Athletic Shoe Designer services was consulted for additional management/recommendations
Acute hypoxic respiratory failure with multifocal pneumonia, suspect aspiration.
Right-sided hydropneumothorax s/p chest tube.
A-fib with RVR.
Acute on chronic HFpEF
Severe dysphagia, failed VSE
Hypernatremia
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
DM type II
hypertension
hyperlipidemia
rosacea
history of tongue cancer s/p resection + XRT--history of dysphagia + aspiration
macular degeneration
A-fib on Eliquis
left carotid artery stenosis
aortic stenosis
history of RBBB
Plan
Stable on RA, no respiratory complaints
Continue IV Unasyn, for aspiration--change IV to PO course pending PEG placement
Cultures thus far negative--Influenza A, B neg.
Legionella and strep pneumo urine antigen negative.
Blood cultures negative so far
Given extent of pneumonia and parapneumonic effusion, recommend 10-14 days of antibiotics.
May change to Augmentin once GI access established
Patient has known history of aspiration is at high risk of pneumonia in the setting of oral feeding
PEG delayed until next week due to INR
Effusion studies suggestive of Exudative, likely Parapneumonic effusion. With prior history of malignancy, malignant etiologies are also in differential.
Pleural fluid studies suggestive of exudate, cytology negative, cultures negative so far
Tolerated chest tube clamping well -- CXR unchanged, d/c'ed chest tube 02/22
Repeat CXR pending DHT placement
Repeat labs today, replete K
Afib-- Heart rate in low 100s, hemodynamically stable.
Continue Lopressor at 5 mg IV Q6
Eliquis once able to take PO
Continue telemetry
CHF history with Pulmonary Hypertension (PASP 53 mm)
Significantly elevated proBNP level, pedal edema on exam.
Discontinued Ringer lactate infusion, started diuresis (02/20)
Elevated PASP noted, however patient in fluid overload during the study. 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 Diurese as tolerated.
Lasix 20 mg IV daily
History of tongue cancer s/p resection + XRT, also h/o dysphagia + aspiration
-Currently n.p.o., on prior imaging, trachea noted to be deviated to left. Oral feeding not safe with very high risk of aspiration
I reviewed strict NPO status today with family moving forward today, they seemed surprised that he could not eat by mouth
Primary team and palliative care discussing with the patient regarding feeding tube versus more comfort focused approach/hospice.
Currently plan is for feeding tube placement. Feeding tube may not eliminate aspiration risk completely.
Prior discussions are reviewed
Data:
CT Chest 01/2025: 1. Small right hydropneumothorax with a chest tube in place.
2. Trace left pleural effusion.
3. Multifocal pneumonia in both lungs, most confluent in the right lower lobe.
4. Severe coronary artery calcifications.
ECHO 01/2025: Small left ventricular size with normal systolic function. LVEF 55-60%. Mildly dilated right ventricle with normal systolic function. Paradoxical low-flow low gradient aortic stenosis (14/8 mmHg, ERMA 1.1 cm2, DVI 0.35). Mild aortic
regurgitation. Moderate tricuspid regurgitation. PASP 53 mmHg. Compared to prior echocardiogram in November 2024, aortic valve gradients are stable. PASP has increased from 35-40 mmHg to 53 mmHg.
-----
Total time spent on this encounter __51__ minutes which includes review of history, physical exam, medications, laboratory data, personal review of imaging, extensive review of outpatient records, discussion with care team and respiratory therapy.
Subjective Data
-
Date of Service:
Date of Service: February 24, 2025
Chief Complaint: Pulmonary Follow Up
Subjective:
No new findings, family at bedside
Reports patient is more flushed today
PEG postponed until next week due to INR
Objective Data
Data Reviewed
Vital Signs / I&O / Oxygen:
Vital Signs
Temp Pulse Resp BP Pulse Ox
97.8 F 77 18 165/99 96
02/24/25 07:29 02/24/25 08:44 02/24/25 07:29 02/24/25 08:44 02/24/25 07:29
Intake and Output
02/23/25 02/24/25 02/25/25
06:59 06:59 06:59
Intake Total 240 / 240 757 / 757
Output Total 900 / 900 425 / 425
Balance -660 / -660 332 / 332
SaO2 96
Nasal Cannula flow liters per 1.5
minute
Physical Exam
General: Comfortable and Other (NAD, NPO)
HEENT: Normocephalic, Anicteric and Moist Mucous Membranes
Cardiovascular: S1-S2, Regular Rhythm and Peripheral Edema (Trace pedal edema, improving)
Respiratory: Clear, Non-Labored Respirations and Other (Decreased air entry on the right side, improving)
GI: Soft, Non Distended and Non Tender
Neurology: Awake, Alert, Oriented and No Motor Deficits
Skin: Warm and Dry
Labs/Micro/Reports
Lab Data
02/24/25 06:58
02/24/25 06:58
Laboratory Results
02/24/25
06:58
PT 26.9 H
INR 2.43
Microbiology
02/19/25 07:44 Blood/Venous Blood Culture - Final
No Growth - Final Report
02/19/25 09:31 Blood/Venous Blood Culture - Preliminary
No Growth in 4 days- Final report to follow
02/19/25 11:27 Pleural Fluid Body Fluid Culture - Final
No Growth After 72 Hours
02/19/25 11:27 Pleural Fluid Gram Stain - Final
[2025-02-24 11:12] LABS: Venous Blood Gas B.E. 13.7 mmol/L (-4 to +4); Venous Blood Gas HCO3 39.5 mmol/L (22-27); Venous Blood Gas O2 Sat % 71.2 %; Venous Blood Gas pCO2 53 mmHg (35-48); Venous Blood Gas pH 7.48 (7.32-7.43); Venous Blood Gas pO2 42 mmHg (30-50)
[2025-02-24] MEDS: KCL 270 MEQ IV (11:19)
[2025-02-24 11:27] LABS: Lactic Acid 1.2 mmol/L (0.7-2.0)
[2025-02-24 11:38] LABS: Glucose - Point of Care 165 mg/dl (70-99)
[2025-02-24 12:17] LABS: ALT (SGPT) 12 U/L (0-50); AST (SGOT) 18 U/L (17-59); Albumin 3.6 g/dl (3.5-5.0); Alkaline Phosphatase 82 U/L (38-126); Blood Urea Nitrogen 28 mg/dl (9-20); Calcium 9.9 mg/dl (8.4-10.2); Carbon Dioxide 36 mmol/L (22-30); Chloride 100 mmol/L (98-107); Estimated Creatinine Clearance 49 ml/min; Glucose 186 mg/dl (70-99); Potassium 3.1 mmol/L (3.5-5.1); Sodium 148 mmol/L (135-145); Total Bilirubin 0.9 mg/dl (0.2-1.3); Total Protein 6.7 g/dl (6.3-8.2); eGFR > 60.00
--- NOTE | 2025-02-24 14:27 | HOSPNOTE ---
Spoke with family about hospice and the philosophy. The family is in agreement with hospice and the plan is for the patient to go home tomorrow 02/25 with hospice. Equipment was ordered for delivery and OOH DNR needed on chart. Please schedule
transport for 12noon. Attending and CM aware of plan.
--- NOTE | 2025-02-24 15:39 | CM ---
Patient family meeting earlier today with physicians, daughter, and 2 sons. Patient family now asking for hospice placement. Patient for hospice tomorrow am and transportation via ambulance. Patient out of hospital DNR form on chart. Patient
family working on private duties to support care at home. Patient home is a 2 story home, and has 3 step. Primary bedroom on the first floor. Hospital bed to be placed on the left inside main door, in former dinning room. CM will continue to follow
for discharge planning needs.
Plan; home with hospice tomorrow am.
[2025-02-24] MEDS: D5W 1000 IV (15:51)
[2025-02-24 16:28] LABS: Glucose - Point of Care 191 mg/dl (70-99)
--- NOTE | 2025-02-24 16:31 | W.PN.HOSP.TC ---
Addendum entered and electronically signed by Nyla Tillman MD 02/24/25 17:34:
I saw and evaluated the patient independently. I reviewed the resident�s note and agree with findings and plan as documented by Dr. Ruiz.
GENERAL: well developed, well nourished, male in no apparent distress--flushed and subdued
HEENT: NC/AT--left neck s/p surgical resection with firm tight skin c/w radiation
HEART: irreg irreg, +S1, +S2, periods of tachycardia
LUNGS : decreased BS bilaterally--chest tube right lung field removed
ABDOM: soft, nontender, nondistended, + bowel sounds
EXT: no cyanosis, clubbing, or edema
NEUROLOGIC: grossly intact
Sepsis due to bilateral pneumonia with right hydropneumothorax--s/p chest tube with 2.1L fluid removed--CXR post chest tube clamping OK and chest tube removed --apprec pulm--CT scan shows multifocal pneumonia in both lungs, trace left pleural
effusion, small right hydropneumothorax with chest tube in place--blood cultures neg--influenza A, B, Legionella, strep pneumo urine antigen are all negative--cont unasyn---Continue incentive spirometer, DuoNebs
Persistent Atrial fibrillation with RVR-- Patient is rate controlled and hemodynamically stable--Patient is on Eliquis for anticoagulation but that is on hold--changed to DVT proph lovenox dose-- Continue Lopressor IV and keep heart rate less than
110- Repeat echocardiogram shows left ventricular ejection fraction of 55 to 60%
hypernatremia--starting IVF, D5W
hematuria--likely due to lovenox--change to DVT prophylaxis dosing
Chronic Heart failure with preserved ejection fraction--no acute exacerbation- Most recent shows left ventricular ejection fraction of 55 to 60%---despite elevated proBNP, I do not believe the patient examines as acute heart failure--in fact,
patient's sodium went up with IV Lasix treatments
History of aspiration pneumonia and dysphagia-- Speech therapy recommends strict n.p.o., meds via nonoral means, oral care, MONITORING COORDINATOR-- Discussed with family regarding feeding tube versus hospice--family was leaning towards hospice 02/20 but then 02/21
wanted PEG tube--apprec GI, PEG placement deferred--INR elevated due to Eliquis (which has been on hold)--s/p FFP -- PEG tube placement 02/24 canceled again due to elevated INR and elevated sodium, so Dobhoff was to be placed by GI with tube feeds
until Thursday for PEG placement---of note, speech and NURSING SERVICES MANAGER both document that pt would not and does not want feeding tube--family convinced him to have PEG tube placed--on 02/24/2025, again had family meeting with , 2 sons, daughter, resident
team, case hardener all present--recapped again, dysphagia and reasons for feeding tube as desired by family--NOW, family has decided against the feeding tube and that it would be best if the patient were kept comfortable, could eat and drink what
ever he wanted, and go home on hospice--I have let the GI and surgery teams know that the PEG tube will be canceled and that the patient will be going home on hospice tomorrow
DVT proph--Lovenox
CODE STATUS changed to DNR
Original Note:
Today's Communication/Plan
-
- Patient will be discharged tomorrow to home hospice
Assessment / Plan
Assessment / Plan
On 02/24/25 patients family has decided to transition to hospice. Will continue all medications until he is transitioned to home hospice, then hospice care providers will decide course of medical managment.
Sepsis due to bilateral pneumonia with right hydropneumothorax:
- Latest chest x-ray on 02/22/2025 shows slightly increased size of small right hydropneumothorax, bibasilar airspace opacities consistent with pneumonia on the right side
-Patient's chest tube was removed 02/22/25because of stable respiratory status, no significant reaccumulation on imaging, draining less than 150 mL a day
- Pleural fluid culture is negative, blood cultures are negative, influenza A, B, Legionella, strep pneumo urine antigen are all negative
- Pleural fluid analysis shows a protein ratio more than .6 indicating a exudative effusion, cytology pending. Differential is empyema vs parapneumonic effusion vs malignancy
- Continue incentive spirometer to help improve lung expansion and oxygenation. DuoNebs to help reduce chronic airway inflammation.
- Continue Unasyn as patient's x-ray still shows pneumonia. Continue antibiotics for 14 days then transition to Augmentin on discharge as per pulmonary recommendations.
- PT/OT are following and recommend skilled rehab 1 to 2 hours a day
Hypokalemia:
- Potassium was 3.1
- Replete potassium, will check in a.m.
Paroxysmal Atrial fibrillation with RVR:
- No dizziness, chest palpitations, syncope, weakness.
- Patient is rate controlled and hemodynamically stable
- Continue Lopressor IV and keep heart rate less than 110
- Continue on logistic manager heart rate
- Repeat echocardiogram shows left ventricular ejection fraction of 55 to 60%
- Cardiology saw patient and recommended changing switching anticoagulation back to Eliquis when patient is able to take PO
Acute moderate Hypernatremia:
- sodium level is 151
- No dry mucous membranes, lethargy, confusion, seizures
- Suspect due to a combination of diuretics and NPO for procedure. Continue to observe sodium.
Hematuria:
- Therapeutic dose of Lovenox was changed to renal dosage of Lovenox which is 40 qpm as patient was having hematuria
Chronic heart failure with preserved ejection fraction:
- Most recent shows left ventricular ejection fraction of 55 to 60%
- hold IV Lasix 20 mg and instead continue IVF
- Monitor ins and outs, fluid restriction, sodium restriction
- Keep potassium > 4 and magnesium> 2
History of aspiration pneumonia and dysphagia:
- Speech therapy recommends strict n.p.o., meds via nonoral means, oral care, MONITORING COORDINATOR
- Family has chosen hospice care
DVT prophylaxis- Lovenox
Full code
Anticipated Discharge: Within 24 hours
Subjective/Interval History
-
Date of Service: February 24, 2025
Patient has no acute medical complaints.
Objective Data
-
Labs:
Laboratory Results
02/24/25 02/24/25
06:58 11:13
WBC 6.9
Hgb 13.2
Hct 41.1
Plt Count 188
PT 26.9 H
INR 2.43
Sodium 149 H 148 H
Potassium 3.0 L 3.1 L
Chloride 101 100
Carbon Dioxide 36 H 36 H
BUN 28 H 28 H
Creatinine 1.0 1.0
Glucose 195 H 186 H
Calcium 10.2 9.9
Total Bilirubin 1.0 0.9
AST 20 18
ALT 14 12
Alkaline Phosphatase 88 82
Vital Signs:
Vital Signs
Temp Pulse Resp BP Pulse Ox
98.1 F 93 17 141/81 95
02/24/25 15:15 02/24/25 15:15 02/24/25 15:15 02/24/25 15:15 02/24/25 15:15
I&O
02/23/25 02/24/25 02/25/25
06:59 06:59 06:59
Intake Total 240 / 240 757 / 757
Output Total 900 / 900 425 / 425
Balance -660 / -660 332 / 332
Review of Systems
-
History Source: Patient
All other systems: Reviewed and negative
Physical Exam
-
General: Appears Chronically Ill
HEENT: Normocephalic and Atraumatic
Respiratory: Rhonchi (Bilaterally)
Cardiac: S1/S2 and Irregular Rhythm
GI: Soft, Nontender, Nondistended and Normal Bowel Sounds
Genito-urinary: No Costovertebral Tender
Musculoskeletal: No Clubbing, No Cyanosis and No Edema
Neuro: AO x 3
Hematologic / Lymphatic: No Lymphadenopathy
Psych: Calm
Data Reviewed
-
Labs: Labs Reviewed by me and Discussed with Physician
[2025-02-24] MEDS: LOVENOX 40 MG SC (18:09)
--- NOTE | 2025-02-24 19:14 | PTCARENOTE ---
approx 1700, this nurse was alerted that pt was not doing well, struggling to breathe, non-rebreather mask was placed, VSS obtained, suction done. After third suction attempt, a large dark brownish, reddish gelatinous mass, approx 2' in diameter was
dislodged from throat and able to be removed with suction wand sweep. Pt was immediately able to breathe better with 100% O2 sats. Pt received respiratory tx and continues to be stable.
[2025-02-25 00:20] LABS: Glucose - Point of Care 175 mg/dl (70-99)
[2025-02-25] MEDS: NOVOLOG FLEXPEN-LOW RESISTANCE 1 UNITS SC ×2 (00:21→06:10)
[2025-02-25 03:55] VITALS: BP 190/103
[2025-02-25] MEDS: UNASYN IV ×2 (04:56→08:36)
[2025-02-25] MEDS: LOPRESSOR 5 MG IV (05:38)
[2025-02-25 05:48] VITALS: BP 156/89
[2025-02-25 06:00] VITALS: BMI 21.7
[2025-02-25 06:05] LABS: Glucose - Point of Care 162 mg/dl (70-99)
[2025-02-25 07:00] VITALS: BP 146/91
[2025-02-25] MEDS: SODIUM CHLORIDE 3% FOR INHALATION 1 VIAL INH (07:25)
[2025-02-25] MEDS: DUONEB 3 ML INH (07:25)
--- NOTE | 2025-02-25 15:09 | W.PN.HOSP.TC ---
Addendum entered and electronically signed by Nyla Tillman MD 02/25/25 16:10:
I saw and evaluated the patient independently. I reviewed the resident�s note and agree with findings and plan as documented by Dr. Ruiz.
GENERAL: well developed, well nourished, male in no apparent distress
HEENT: NC/AT--left neck s/p surgical resection with firm tight skin c/w radiation
HEART: irreg irreg, +S1, +S2, periods of tachycardia
LUNGS : decreased BS bilaterally--chest tube right lung field removed
ABDOM: soft, nontender, nondistended, + bowel sounds
EXT: no cyanosis, clubbing, or edema
NEUROLOGIC: grossly intact
Sepsis due to bilateral pneumonia with right hydropneumothorax--s/p chest tube with 2.1L fluid removed--CXR post chest tube clamping OK and chest tube removed --apprec pulm--CT scan shows multifocal pneumonia in both lungs, trace left pleural
effusion, small right hydropneumothorax with chest tube in place--blood cultures neg--influenza A, B, Legionella, strep pneumo urine antigen are all negative--stop unasyn---Continue incentive spirometer, DuoNebs
Persistent Atrial fibrillation with RVR-- Patient is rate controlled and hemodynamically stable--Patient is on Eliquis for anticoagulation but that is on hold--changed to DVT proph lovenox dose-- Continue Lopressor IV and keep heart rate less than
110- Repeat echocardiogram shows left ventricular ejection fraction of 55 to 60%
hypernatremia--stopped IVF, D5W
hematuria--likely due to lovenox--change to DVT prophylaxis dosing
Chronic Heart failure with preserved ejection fraction--no acute exacerbation- Most recent shows left ventricular ejection fraction of 55 to 60%---despite elevated proBNP, I do not believe the patient examines as acute heart failure--in fact,
patient's sodium went up with IV Lasix treatments
History of aspiration pneumonia and dysphagia-- Speech therapy recommends strict n.p.o., meds via nonoral means, oral care, MANAGER HOME IMPROVEMENT-- Discussed with family regarding feeding tube versus hospice--family was leaning towards hospice 02/20 but then 02/21
wanted PEG tube--apprec GI, PEG placement deferred--INR elevated due to Eliquis (which has been on hold)--s/p FFP -- PEG tube placement 02/24 canceled again due to elevated INR and elevated sodium, so Dobhoff was to be placed by GI with tube feeds
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
team, medical case worker all present--recapped again, dysphagia and reasons for feeding tube as desired by family--NOW, family has decided against the feeding tube and that it would be best if the patient were kept comfortable, could eat and drink what
ever he wanted, and go home on hospice--I have let the GI and surgery teams know that the PEG tube will be canceled and that the patient will be going home on hospice tomorrow--fully agree with this plan of action
DVT proph--Lovenox
CODE STATUS changed to DNR
Original Note:
Today's Communication/Plan
-
- patient was discharged to home hospice
Assessment / Plan
Assessment / Plan
On 02/25/25 patients family transitioned to hospice. Will continue all home medications , then hospice care providers will decide course of medical management.
Sepsis due to bilateral pneumonia with right hydropneumothorax:
- Latest chest x-ray on 02/22/2025 shows slightly increased size of small right hydropneumothorax, bibasilar airspace opacities consistent with pneumonia on the right side
- Patient's chest tube was removed 02/22/25 because of stable respiratory status, no significant reaccumulation on imaging, draining less than 150 mL a day
- Pleural fluid culture is negative, blood cultures are negative, influenza A, B, Legionella, strep pneumo urine antigen are all negative
- Pleural fluid analysis shows a protein ratio more than .6 indicating a exudative effusion, cytology pending. Differential is empyema vs parapneumonic effusion vs malignancy
- d/c'd incentive spirometer and duonebs
- d/c's antibiotics
Hypokalemia:
- 3.1 on discharge
Paroxysmal Atrial fibrillation with RVR:
- No dizziness, chest palpitations, syncope, weakness.
- Patient is rate controlled and hemodynamically stable
- Continue Lopressor home dose and keep heart rate less than 110
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
- Repeat echocardiogram shows left ventricular ejection fraction of 55 to 60%
- Cardiology saw patient and recommended changing switching anticoagulation back to Eliquis when patient is able to take PO
Acute moderate Hypernatremia:
- sodium level is 148 on discharge
- No dry mucous membranes, lethargy, confusion, seizures
- Suspect due to a combination of diuretics and NPO for procedure. Continue to observe sodium.
Hematuria:
- lovenox dc'd
Chronic heart failure with preserved ejection fraction:
- Most recent shows left ventricular ejection fraction of 55 to 60%
- Continue home lasix 20 mg dose
- Monitor ins and outs, fluid restriction, sodium restriction
- Keep potassium > 4 and magnesium> 2
History of aspiration pneumonia and dysphagia:
- Speech therapy recommends strict n.p.o., meds via nonoral means, oral care, MANAGER HOME IMPROVEMENT
- Patient is on diet as tolerated post discharge
- Family has chosen hospice care
DVT prophylaxis- Lovenox
Full code
Anticipated Discharge: Today
Subjective/Interval History
-
Date of Service: February 25, 2025
Patient states that he has no acute medical complaints today.
Objective Data
-
Vital Signs:
Vital Signs
Temp Pulse Resp BP Pulse Ox
97.5 F 82 18 146/91 94
02/25/25 07:00 02/25/25 07:26 02/25/25 07:26 02/25/25 07:00 02/25/25 07:26
I&O
02/24/25 02/25/25 02/26/25
06:59 06:59 06:59
Intake Total 757 / 757 240 / 240
Output Total 425 / 425
Balance 332 / 332 240 / 240
Review of Systems
-
History Source: Patient
All other systems: Reviewed and negative
Physical Exam
-
General: Appears Chronically Ill
HEENT: Normocephalic and Atraumatic
Respiratory: Rhonchi (Bilaterally)
Cardiac: S1/S2 and Irregular Rhythm
GI: Soft, Nontender, Nondistended and Normal Bowel Sounds
Genito-urinary: No Costovertebral Tender
Musculoskeletal: No Clubbing, No Cyanosis and No Edema
Neuro: AO x 3
Hematologic / Lymphatic: No Lymphadenopathy
Psych: Calm
Data Reviewed
-
Labs: Labs Reviewed by me and Discussed with Physician
--- NOTE | 2025-02-25 15:38 | W.DCSUMMARY ---
Addendum entered and electronically signed by Nyla Tillman MD 02/25/25 17:17:
Read, reviewed, and agree. See same day progress note for additional details. Time spent coordinating care, DC planning, review of DC plan of care with resident, transition of care, review of records in EMR, med rec, consults, notes, d/w
consultants, nursing, family, and CM = 40 minutes
Since patient failed video swallow this admission and has known moderate oral and severe pharyngeal dysphagia from previous outpatient evaluations, discussions were started regarding hospice versus PEG tube. Initially, patient's family was leaning
toward hospice but then abruptly changed their mind the following day and wanted the PEG tube. GI was consulted. For various reasons including hypernatremia and elevated INR, PEG tube placement was postponed. Family has since decided that the
patient would not want a feeding tube and wished to eat and drink in the usual manner. Therefore, they are agreeable to hospice and letting him eat and drink what ever he desires. Patient has been discharged home with hospice to start today.
Original Note:
Discharge Summary
Discharge Data
Date of Admission: 02/19/25
Date of Discharge: 02/25/25
-
Pending Results: No
Hospital Course
Discharging Physician : Dr. Nyla Tillman and Dr. Mina Ruiz
Disposition : Home hospice
Primary care physician : Unknown
Principal Discharge diagnosis : Sepsis due to bilateral pneumonia with right hydropneumothorax, hypokalemia, acute moderate hyponatremia, hematuria
Chronic Discharge diagnosis : Chronic heart failure with preserved ejection fraction, Persistent atrial fibrillation with RVR
Hospital Course : Patient is an 89 year old male with past medical history of diabetes mellitus type 2, hyperlipidemia, hypertension, tongue cancer status post radiation therapy, atrial fibrillation on Eliquis, left carotid artery stenosis, aortic
stenosis, aspiration pneumonia who presented to the [facility] emergency room on 02/19/2025 with fever of 101.5, chills and a productive cough. He uses a walker and has limited mobility. Because of his aspiration pneumonia history patient has
reduced oral intake and has had significant weight loss. Negative for flu, COVID-19, negative urinalysis. Chest x-ray shows right-sided hydropneumothorax with moderate right-sided pleural effusion and bilateral pulmonary opacities concerning for
pneumonia. Was later admitted to the ICU for rapid A-fib and drops in blood pressure, pipe stripper was consulted.
The patient was transitioned to hospice with home care and discharged with all home medications. Further medical management will be taken care of by hospice providers.
Problem #1: Sepsis due to bilateral pneumonia with right hydropneumothorax---influenza A, B, Legionella, strep pneumo urine antigen all negative. Chest tube was placed and 2.1 L of serosanguineous colored fluid was removed. Pleural fluid studies
suggestive of exudate, most likely parapneumonic effusion versus empyema. Chest tube was clamped on 02/21/25 and follow-up x-ray was unchanged on 02/22/2025 so chest tube was removed. Patient was placed on IV Zosyn which was continued up until his
discharge. Blood cultures and urine cultures were negative.
Problem #2: Persistent atrial fibrillation with rapid ventricular response---patient's rate is 82 on discharge, well-controlled and well-controlled. No dizziness, chest palpitations, syncope, weakness. Patient was placed on telemetry.
Echocardiogram shows left ventricular ejection fraction of 55 to 60%. Eliquis was put on hold because of the patient's n.p.o. status and changed to renally dosed Lovenox. cardiology was consulted and recommended patient to be on Eliquis once they
are off n.p.o., however since patient elected for hospice care, they will take care of further medication management from now on.
Problem #3: Acute moderate hyponatremia---sodium levels 148 on discharge. No dry mucous membranes, lethargy, confusion, seizures. We suspect that this is due to combination of diuretics and n.p.o. for his anticipated PEG procedure which never
proceeded.
Problem #4: Drug-induced hematuria---he was initially placed on therapeutic dose of Lovenox which was 80mg and then this was renally dosed to Lovenox 40. No further episode of hematuria on discharge.
Problem #5: Chronic heart failure with preserved ejection fraction---left ventricular ejection fraction of 55 to 60%. Was started on Lasix 20 Mg IV, however this increased his sodium level above 150 for which he could not get a PEG tube placed as a
sodium was too high for the procedure, then Lasix was put on hold up until discharge.
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 The family initially decided to have a feeding tube placed via a PEG tube however
they later changed her mind after procedure was cancelled due to increased INR and hypernatremia. They they decided hospice after the patient himself decided that he wanted hospice. He is to be on regular diet on discharge to home hospice.
Important imaging findings :
Chest Xray 02/19/25:
IMPRESSION:
Right hydropneumothorax.
Bilateral pulmonary opacities suspicious for pneumonia. Pulmonary edema would be an alternative consideration.
Chest CT 02/20/25:
IMPRESSION:
1. Small right hydropneumothorax with a chest tube in place.
2. Trace left pleural effusion.
3. Multifocal pneumonia in both lungs, most confluent in the right lower lobe.
4. Severe coronary artery calcifications.
Chest xray 02/22/25
IMPRESSION:
Slightly increased size of the small right hydropneumothorax with stable appearance of the right-sided chest tube.
Bibasilar airspace opacities, more pronounced on the right consistent with known pneumonia.
Chest xray 02/23/25:
IMPRESSION:
1. Small right hydropneumothorax, unchanged or slightly decreased in size compared to prior chest x-ray following chest tube removal.
2. Hazy bilateral opacities, suggestive of multifocal pneumonia.
Procedure findings :
Chest tube insertion 02/19/25:
IMPRESSION:
Successful image guided placement of a RIGHT chest tube.
Discharge Plan
-
Patient Disposition: Home with Hospice
Discharge Diagnosis/Procedures: Sepsis due to bilateral pneumonia with right hydropneumothorax, hypokalemia, paroxysmal atrial fibrillation with RVR, acute moderate hyponatremia, hematuria, chronic heart failure with preserved ejection fraction,
history of aspiration pneumonia and dysphagia
Condition: Fair
Diet: As tolerated
Activity: As tolerated
Driving Restrictions: No driving
Bathing Restrictions: None
Other Services: Hospice
Referrals:
UNKNOWN - PT DOES,NOT KNOW [Family Provider] - in less than 1 week
Additional Discharge Medication Instructions: Patient is strict NPO, he is being discharged on all his home medications. Hospice medical providers will take care of all his medication needs from now on.
Prescriptions:
Continued
atorvastatin [Lipitor] 80 mg Tablet
80 mg PO HS
levothyroxine 50 mcg Tablet
50 mcg PO DAILY
pregabalin [Lyrica] 75 mg Capsule
75 mg PO BID
omega 6-gmy-syx-fish oil [Fish Oil] 1,000 mg (120 mg-180 mg) Capsule
1 cap PO DAILY
Eliquis 5 mg Tablet
5 mg PO BID
omeprazole 40 mg Capsule,Delayed Release(Dr/Ec)
40 mg PO DAILY
pentoxifylline 400 mg Tablet Extended Release
400 mg PO BID
glimepiride 1 mg Tablet
1 mg PO DAILY
temazepam 15 mg Capsule
15 mg PO HS PRN (Reason: insomnia)
Patient Comments:
takes if he wakes up in the middle of the night
hydrocodone-acetaminophen 7.5-325 mg Tablet
1 tab PO Q6HPRN PRN (Reason: moderate pain)
docusate sodium 100 mg Capsule
200 mg PO BID
Patient Comments:
takes with tomato juice
furosemide 20 mg Tablet
20 mg PO .MOWEFR
metoprolol succinate 25 mg Tablet Extended Release 24 Hr
25 mg PO DAILY
fluoride (sodium) [Denta 5000 Plus] 1.1 % Cream
1 applic DENTAL DAILY
PreserVision AREDS 2,148 mcg-113 mg-45 mg-17.4mg Tablet
2 tab PO BID
Discharge Orders:
Discharge Patient (As Directed); Ordered 02/25/25
Ordered By: Mina Ruiz
Discharge Date and Time
Discharge Date/Time: 02/25/25 10:49
Print Language: NORWEGIAN
== END 2025-02-25 10:49 | disposition hospice, home (50) | DRG 871 ==
LOC: 3 WEST ACU 10:38
PROVIDERS: Internal Medicine; Nurse Practitioner Adult Health; Radiology Diagnostic Radiology; Radiology Vascular & Interventional Radiology; ADMITTING PHYSICIAN Hospitalist; ATTENDING PHYSICIAN Internal Medicine; CONSULT PHYSICIAN Internal Medicine Critical Care Medicine; CONSULT PHYSICIAN Student in an Organized Health Care Education/Training Program; EMERGENCY PHYSICIAN Emergency Medicine
PROC: 0W9930Z Drainage of Right Pleural Cavity with Drainage Device, Percutaneous Approach (ICD-10-PCS; 2025-02-19)
PROC: 30233K1 Transfusion of Nonautologous Frozen Plasma into Peripheral Vein, Percutaneous Approach (ICD-10-PCS; 2025-02-23)
PROC: 0WP9X0Z Removal of Drainage Device from Right Pleural Cavity, External Approach (ICD-10-PCS; 2025-02-23)
DX: A41.9 Sepsis, unspecified organism (principal); J18.9 Pneumonia, unspecified organism; J69.0 Pneumonitis due to inhalation of food and vomit; J96.01 Acute respiratory failure with hypoxia; I48.19 Other persistent atrial fibrillation; J93.83 Other pneumothorax; J94.8 Other specified pleural conditions; E87.0 Hyperosmolality and hypernatremia; I50.32 Chronic diastolic (congestive) heart failure; R63.0 Anorexia; I11.0 Hypertensive heart disease with heart failure; I65.22 Occlusion and stenosis of left carotid artery; E11.65 Type 2 diabetes mellitus with hyperglycemia; I25.10 Atherosclerotic heart disease of native coronary artery without angina pectoris; E03.9 Hypothyroidism, unspecified; I35.0 Nonrheumatic aortic (valve) stenosis; R13.13 Dysphagia, pharyngeal phase; I16.0 Hypertensive urgency; E78.00 Pure hypercholesterolemia, unspecified; H91.90 Unspecified hearing loss, unspecified ear; D64.9 Anemia, unspecified; I73.9 Peripheral vascular disease, unspecified; I45.10 Unspecified right bundle-branch block; H35.30 Unspecified macular degeneration; L71.9 Rosacea, unspecified; R79.1 Abnormal coagulation profile; D69.6 Thrombocytopenia, unspecified; I27.20 Pulmonary hypertension, unspecified; E83.42 Hypomagnesemia; R63.4 Abnormal weight loss; E87.6 Hypokalemia; R31.9 Hematuria, unspecified; Z53.09 Procedure and treatment not carried out because of other contraindication; Z87.01 Personal history of pneumonia (recurrent); Z79.01 Long term (current) use of anticoagulants; Z79.84 Long term (current) use of oral hypoglycemic drugs; Z85.89 Personal history of malignant neoplasm of other organs and systems; Z92.3 Personal history of irradiation; Z79.02 Long term (current) use of antithrombotics/antiplatelets; Z68.21 Body mass index [BMI] 21.0-21.9, adult; Z11.52 Encounter for screening for COVID-19; Z88.0 Allergy status to penicillin; Z79.82 Long term (current) use of aspirin; Z79.890 Hormone replacement therapy; Z82.49 Family history of ischemic heart disease and other diseases of the circulatory system; Z85.810 Personal history of malignant neoplasm of tongue
CPT/HCPCS: 88305; 32557; 71045; 71046; 71250; 80048; 80053; 81003; 81015; 82805; 82945; 82962; 83036; 83605; 83615; 83735; 83880; 83986; 84100; 84157; 84478; 85025; 85027; 85610; 85730; 86850; 86900; 86901; 87015; 87040; 87070; 87205; 87449; 87502; 87811; 87899; 88112; 92526; 92610; 93005; 93306; 94640; 96361; 96365; 96375; 97163; 97166; 97530; 97535; 99291; C1729; C1769; P9059